=== PATIENT | female | born 1940 | race Caucasian/White ===

== ENCOUNTER 2017-06-21 19:27 | Inpatient (IN) | payer MEDICARE ==
[~2017-06-21] VITALS: Ht 167.6 cm; Wt 70.0 kg
[2017-06-21 19:35] VITALS: BP 175/72; PULSE 84; RESP 20; TEMP 98.2; O2SAT 97
[2017-06-21] MEDS ORDERED: TETANUS/DIPHTHERIA TOXOID ADULT 0.5 ML VIAL IM ONE (19:45)
--- NOTE | 2017-06-21 19:47 | PD ---
HPI Chief Complaint: Medical Clearance Time Seen by Provider: 19:44 Travel History International Travel<30 days: No Contact w/Intl Traveler<30days: No Traveled to known affect area: No History of Present Illness HPI This is a 76-year-old female with long-standing history of hydrocephalus. She presents via EMS for evaluation. The patient reports that 2 days ago she was getting out of bed and she fell. The circumstances regarding the fall are unclear but she denies any precipitating dizziness, lightheadedness, chest pain or shortness of breath, headache, blurred vision, weakness. She reports that she sustained an abrasion to her right forearm and denies any other injuries. Reportedly today her family felt that she needed to come here for evaluation. The patient reports that she was doing her laundry and her family felt that she was not moving as swiftly as usual and this was the deciding factor in her evaluation today. The patient reports that she feels well. She has had some myalgias throughout the week which she attributed to possible flu. She has some left-sided neck pain for the past few days as well and is uncertain if that was from a fall or not. She denies headache, blurred vision, chest pain or shortness of breath, cough, congestion, sore throat, abdominal pain, diarrhea , constipation. She has no other complaints at this time. FORMERLY [facility], [facility] Past Medical History ?: Not Social History Alcohol Use: No Tobacco Use: No Allergies-Medications (Allergen,Severity, Reaction): Coded Allergies: No Known Allergies (Unverified , 06/21/17) Review of Systems Except as stated in HPI: all other systems reviewed are Neg Physical Exam Narrative GENERAL: Well-developed well-nourished female in no acute distress answering questions appropriately SKIN: Warm and dry. Abrasion to the right forearm. HEAD: Atraumatic. Normocephalic. EYES: Pupils equal and round. No scleral icterus. No injection or drainage. ENT: No nasal bleeding or discharge. Mucous membranes pink and moist. NECK: Trachea midline. No JVD. CARDIOVASCULAR: Regular rate and rhythm. No murmur appreciated. RESPIRATORY: No accessory muscle use. Clear to auscultation. Breath sounds equal bilaterally. GASTROINTESTINAL: Abdomen soft, non-tender, nondistended. Hepatic and splenic margins not palpable. MUSCULOSKELETAL: No obvious deformities. The patient appears to be holding her neck tilted towards the left. She has pain with range of motion of the neck. No obvious deformities. No tenderness to palpation along the cervical thoracic or lumbar midline spine. NEUROLOGICAL: Awake and alert. No obvious cranial nerve deficits. Motor grossly within normal limits. Normal speech. PSYCHIATRIC: Appropriate mood and affect; insight and judgment normal. Data Data Last Documented VS Vital Signs Date Time Temp Pulse Resp B/P (MAP) Pulse Ox O2 Delivery O2 Flow Rate FiO2 06/21/17 19:35 98.2 84 20 175/72 (106) [address] Cerv Spine W/O Contrast (06/21/17 ) Tetanus/Diphtheria Tox Adult (Tetanus/Di (06/21/17 19:45) Ct Brain W/O Iv Contrast(Rout) (06/21/17 ) Influenzae A/B Antigen (06/21/17 19:44) Electrocardiogram (06/21/17 19:44) Complete Blood Count With Diff (06/21/17 19:44) Comprehensive Metabolic Panel (06/21/17 19:44) Creatine Kinase (Cpk) (06/21/17 19:44) Urinalysis - C+S If Indicated (06/21/17 19:44) Chest, Single Ap (06/21/17 19:44) Ecg Monitoring (06/21/17 19:44) Iv Access Insert/Monitor (06/21/17 19:44) Oximetry (06/21/17 19:44) Acetaminophen (Tylenol) (06/21/17 21:00) Sodium Chlor 0.9% 1000 Ml Inj (Ns 1000 M (06/21/17 21:23) CKMB (06/21/17 20:45) CKMB% (06/21/17 20:45) Sodium Chlor 0.9% 1000 Ml Inj (Ns 1000 M (06/21/17 21:43) Labs Laboratory Tests Test 06/21/17 19:55 06/21/17 20:45 06/21/17 21:30 White Blood Count 10.4 TH/MM3 Red Blood Count 4.60 MIL/MM3 Hemoglobin 14.0 GM/DL Hematocrit 41.5 % Mean Corpuscular Volume 90.1 FL Mean Corpuscular Hemoglobin 30.3 PG Mean Corpuscular Hemoglobin Concent 33.7 % Red Cell Distribution Width 13.1 % Platelet Count 271 TH/MM3 Mean Platelet Volume 9.9 FL Neutrophils (%) (Auto) 85.2 % Lymphocytes (%) (Auto) 4.4 % Monocytes (%) (Auto) 10.3 % Eosinophils (%) (Auto) 0.0 % Basophils (%) (Auto) 0.1 % Neutrophils # (Auto) 8.8 TH/MM3 Lymphocytes # (Auto) 0.5 TH/MM3 Monocytes # (Auto) 1.1 TH/MM3 Eosinophils # (Auto) 0.0 TH/MM3 Basophils # (Auto) 0.0 TH/MM3 CBC Comment DIFF FINAL Differential Comment Blood Urea Nitrogen 30 MG/DL Creatinine 0.87 MG/DL Random Glucose 119 MG/DL Total Protein 8.0 GM/DL Albumin 3.9 GM/DL Calcium Level 9.0 MG/DL Alkaline Phosphatase 23 U/L Aspartate Amino Transf (AST/SGOT) 154 U/L Alanine Aminotransferase (ALT/SGPT) 77 U/L Total Bilirubin 0.6 MG/DL Sodium Level 139 MEQ/L Potassium Level 3.4 MEQ/L Chloride Level 104 MEQ/L Carbon Dioxide Level 27.5 MEQ/L Anion Gap 8 MEQ/L Estimat Glomerular Filtration Rate 63 ML/MIN Total Creatine Kinase 5740 U/L Creatine Kinase MB 55.7 NG/ML Creatine Kinase MB % 1.0 % [facility] Medical Decision Making Medical Screen Exam Complete: Yes Emergency Medical Condition: Yes Medical Record Reviewed: Yes Interpretation(s) CT cervical spine CONCLUSION: 1. No evidence of acute fracture or traumatic listhesis. 2. Deformity left C5-6 facet joints which may be developmental or posttraumatic from previous injury. 3. Dextroscoliosis of the cervical spine CT brain reveals hydrocephalus Differential Diagnosis Influenza, myalgias, myositis, rhabdomyolysis, dehydration, electrolyte abnormality Narrative Course The patient was placed on ECG monitoring pulse oximetry. Twelve-lead EKG was obtained. Plan is for basic lab work, chest x-ray, CT of the brain and cervical spine. CT the brain reveals hydrocephalus consistent with her history. CBC is unremarkable. CT of the cervical spine reveals no acute abnormalities. CBC is unremarkable. The patient is positive for influenza B. Her symptoms started 1 week ago. The son has arrived and is concerned about her behavior over the past 2 days. He thinks that the patient was sitting on the toilet for over 24 hours and unable to get up. The patient's total CK is 5740, this could be secondary to influenza or immobilization. The patient will be given IV fluids and she will be admitted. Diagnosis Primary Impression: Influenza Additional Impressions: Generalized weakness Rhabdomyolysis Admitting Information Admitting Physician Requests: Admit Bogdan Crawford Jun 21, 2017 19:47
--- NOTE | 2017-06-21 20:16 | RADRPT ---
EXAM DATE/TIME: 06/21/2017 19:57 [facility] COMPARISON: No previous studies available for comparison. INDICATIONS : Flu-like symptoms for 2 days. MEDICAL HISTORY : Hypercholesterolemia. SURGICAL HISTORY : Unobtainable ENCOUNTER: Initial ACUITY: 2 days PAIN SCORE: 0/10 LOCATION: Bilateral chest FINDINGS: A single view of the chest demonstrates the lungs to be symmetrically aerated without evidence of mas s, infiltrate or effusion. The cardiomediastinal contours are unremarkable. Osseous structures are intact. CONCLUSION: No acute disease. Gilbert Aguilar MD on June 21, 2017 at 20:13 Board Certified Radiologist. This report was verified electronically.
[2017-06-21 20:23] LABS: AUTOMATED NEUTROPHIL # 8.8 TH/MM3 (1.8-7.7); BASOPHIL % 0.1 % (0.0-2.0); HEMATOCRIT 41.5 % (35.0-46.0); LYMPH % 4.4 % (9.0-44.0); LYMPHOCYTE # 0.5 TH/MM3 (1.0-4.8); MEAN CELL VOLUME 90.1 FL (80.0-100.0); MEAN CORPUSCULAR HEMOGLOBIN 30.3 PG (27.0-34.0); MEAN CORPUSCULAR HGB CONC 33.7 % (32.0-36.0); MEAN PLATELET VOLUME 9.9 FL (7.0-11.0); MONO % 10.3 % (0.0-8.0); MONOCYTE # 1.1 TH/MM3 (0-0.9); NEUT % 85.2 % (16.0-70.0); PLATELET COUNT 271 TH/MM3 (150-450); RED CELL DISTRIBUTION WIDTH 13.1 % (11.6-17.2); WHITE BLOOD COUNT 10.4 TH/MM3 (4.0-11.0)
--- NOTE | 2017-06-21 20:56 | RADRPT ---
EXAM DATE/TIME: 06/21/2017 20:14 [facility] COMPARISON: No previous studies available for comparison. INDICATIONS : Trauma, fall on . Altered mental status. RADIATION DOSE: 69.15 CTDIvol (mGy) MEDICAL HISTORY : None SURGICAL HISTORY : None. ENCOUNTER: Initial ACUITY: 1 day PAIN SCALE: 5/10 LOCATION: cranial TECHNIQUE: Multiple contiguous axial images were obtained of the head. Using automated exposure control and adj ustment of the mA and/or kV according to patient size, radiation dose was kept as low as reasonably a chievable to obtain optimal diagnostic quality images. DICOM format image data is available electro nically for review and comparison. FINDINGS: CEREBRUM: The ventricles are markedly enlarged. There no findings characteristic of an acute infarct, hemorrhag e, mass or edema. POSTERIOR FOSSA: The cerebellum and brainstem are intact. The 4th ventricle is moderately enlarged. The cerebellopon nisha angle is unremarkable. EXTRACRANIAL: The visualized portion of the orbits is intact. SKULL: The calvaria is intact. No evidence of skull fracture. CONCLUSION: 1. Ventriculomegaly characteristic of hydrocephalus. 2. No evidence of acute infarct, hemorrhage, mass or edema. Gilbert Aguilar MD on June 21, 2017 at 20:52 Board Certified Radiologist. This report was verified electronically.
[2017-06-21] MEDS ORDERED: ACETAMINOPHEN 325 MG TAB PO ONE (21:00)
--- NOTE | 2017-06-21 21:01 | RADRPT ---
EXAM DATE/TIME: 06/21/2017 20:16 [facility] COMPARISON: No previous studies available for comparison. INDICATIONS : Trauma, fall on . RADIATION DOSE: 30.12 CTDIvol (mGy) MEDICAL HISTORY : None SURGICAL HISTORY : None. ENCOUNTER: Initial ACUITY: 1 day PAIN SCALE: 4/10 LOCATION: neck TECHNIQUE: Volumetric scanning of the cervical spine was performed. Multiplanar reconstructions in the sagittal, coronal and oblique axial planes were performed. Using automated exposure control and adjustment o f the mA and/or kV according to patient size, radiation dose was kept as low as reasonably achievable to obtain optimal diagnostic quality images. DICOM format image data is available electronically f or review and comparison. FINDINGS: A dextro scoliotic curvature is noted of the cervical spine. Cranial cervical and cervical vertebral body alignment are intact without evidence of traumatic listh esis. Vertebral bodies are intact without evidence of compression deformity. There is deformity of the left T5-T6 facet joint which does not appear acute. The facet joints are ot herwise unremarkable without evidence of fracture or subluxation. There are no soft tissue abnormalities. CONCLUSION: 1. No evidence of acute fracture or traumatic listhesis. 2. Deformity left C5-6 facet joints which may be developmental or posttraumatic from previous injury. 3. Dextroscoliosis of the cervical spine Gilbert Aguilar MD on June 21, 2017 at 20:54 Board Certified Radiologist. This report was verified electronically.
[2017-06-21 21:21] LABS: ALBUMIN 3.9 GM/DL (3.4-5.0); AST (GOT) 154 U/L (15-37); BICARBONATE 27.5 MEQ/L (21.0-32.0); BLOOD UREA NITROGEN 30 MG/DL (7-18); CHLORIDE 104 MEQ/L (98-107); CREATININE 0.87 MG/DL (0.50-1.00); GLOMERULAR FILTRATION RATE 63 ML/MIN (>89); GLUCOSE,RANDOM 119 MG/DL (74-106); SODIUM (NA) 139 MEQ/L (136-145)
[2017-06-21 21:22] LABS: ALT (GPT) 77 U/L (10-53)
[2017-06-21] MEDS ORDERED: SODIUM CHLOR 0.9% 1000 ML INJ 1,000 ML IV SCH ×2 (21:23→21:43)
[2017-06-21 21:36] LABS: ALKALINE PHOSPHATASE 23 U/L (45-117); TOTAL BILIRUBIN ADULT 0.6 MG/DL (0.2-1.0)
[2017-06-21] MEDS ORDERED: LACTULOSE SYRUP 20 GM/30 ML CUP PO PRN (22:15)
[2017-06-21] MEDS ORDERED: BISACODYL 10 MG SUPP RECTAL PRN (22:15)
[2017-06-21] MEDS ORDERED: ACETAMINOPHEN 325 MG TAB PO PRN (22:15)
[2017-06-21] MEDS ORDERED: ACETAMINOPHEN/HYDROcodone 325 MG/5 MG TAB PO PRN (22:15)
[2017-06-21] MEDS ORDERED: POTASSIUM CHLORIDE 20 MEQ CONTROLLED RELEASE TAB PO ONE (22:15)
[2017-06-21] MEDS ORDERED: ONDANSETRON HCL 4 MG/2 ML VIAL IVP PRN (22:15)
[2017-06-21] MEDS ORDERED: MAGNESIUM HYDROXIDE SUSP 30 ML CUP PO PRN (22:15)
[2017-06-21] MEDS ORDERED: SODIUM CHLORIDE 0.9% FLUSH 10 ML FLUSH IV FLUSH PRN (22:15)
[2017-06-21] MEDS ORDERED: SENNOSIDES 8.6 MG TAB PO PRN (22:15)
[2017-06-21] MEDS ORDERED: ACETAMINOPHEN/HYDROcodone 325 MG/10 MG TAB PO PRN (22:15)
[2017-06-21 23:43] VITALS: BP 165/70; PULSE 88; RESP 24; O2SAT 95
[2017-06-22] VITALS (11 sets, daily range): BP systolic 114–140; BP diastolic 56–78; PULSE 75–92; RESP 16–22; TEMP 96–98.8; O2SAT 90–95
--- NOTE | 2017-06-22 00:27 | HHI.HP ---
[facility] Service [facility] Primary Care Physician Unknown Admission Diagnosis rhabdomyolysis, influenza Diagnoses: (1) Encephalopathy Diagnosis: Principal (2) Hypokalemia Diagnosis: Principal (3) Dehydration Diagnosis: Principal (4) Rhabdomyolysis Diagnosis: Principal (5) Influenza Diagnosis: Principal (6) Generalized weakness Diagnosis: Principal Travel History International Travel<30 Days: No Contact w/Intl Traveler <30 Da: No Traveled to Known Affected Are: No History of Present Illness This is a 76-year-old female with a PMH of Hydrocephalus and Hyperlipidemia was brought to the ER by EMS secondary to fall. Pt w/ generalized weakness, s/p fall 2 days ago, now w/ progressive confusion noted by family. Pt poor historian, unable to provide much history, but states she feels well at this time. Does note muscle aches and fatigue for approx 1wk. No fever, chills or sick contacts. On arrival, BP 135/72, HR 84, O2 sat 97% on RA, Afebrile. CBC unremarkable. K+ 3.4. GFR 63. LFTs elevated. CPK 5740. UA pending. CT Head with ventriculomegaly characteristic of hydrocephalus, no acute findings. CT C-spine with no acute fracture or trauma. CXR with no acute findings. Flu B + Review of Systems Except as stated in HPI: all other systems reviewed are Neg ROS: 14 point review of systems otherwise negative. Past Family Social History Past Medical History PMH: Hydrocephalus and Hyperlipidemia Past Surgical History PAST SURGICAL HISTORY: None Allergies: Coded Allergies: No Known Allergies (Unverified , 06/21/17) Family History PAST FAMILY HISTORY: Reviewed. No h/o DM or CAD Social History PAST SOCIAL HISTORY: Negative for alcohol, tobacco or drugs. Physical Exam Vital Signs Vital Signs Date Time Temp Pulse Resp B/P (MAP) Pulse Ox O2 Delivery O2 Flow Rate FiO2 06/21/17 23:43 88 24 165/70 (101) 95 Room Air 06/21/17 19:35 98.2 84 20 175/72 (106) 97 Physical Exam PE: GENERAL: Elderly female in no acute distress. HEENT: PERRLA, EOMI. No scleral icterus or conjunctival pallor. No lid lag or facial droop. CARDIOVASCULAR: Regular rate and rhythm. No obvious murmurs to auscultation. No chest tenderness to palpation. RESPIRATORY: No obvious rhonchi or wheezing. Clear to auscultation. Breath sounds equal bilaterally. GASTROINTESTINAL: Abdomen soft, non-tender, nondistended. BS normal. MUSCULOSKELETAL: Extremities without clubbing, cyanosis, or edema. No obvious deformities. NEUROLOGICAL: Awake, alert. No focal neurologic deficits. Moving both upper and lower extremities spontaneously. Laboratory Laboratory Tests Test 06/21/17 19:55 06/21/17 20:45 White Blood Count 10.4 Red Blood Count 4.60 Hemoglobin 14.0 Hematocrit 41.5 Mean Corpuscular Volume 90.1 Mean Corpuscular Hemoglobin 30.3 Mean Corpuscular Hemoglobin Concent 33.7 Red Cell Distribution Width 13.1 Platelet Count 271 Mean Platelet Volume 9.9 Neutrophils (%) (Auto) 85.2 Lymphocytes (%) (Auto) 4.4 Monocytes (%) (Auto) 10.3 Eosinophils (%) (Auto) 0.0 Basophils (%) (Auto) 0.1 Neutrophils # (Auto) 8.8 Lymphocytes # (Auto) 0.5 Monocytes # (Auto) 1.1 Eosinophils # (Auto) 0.0 Basophils # (Auto) 0.0 CBC Comment DIFF FINAL Differential Comment Blood Urea Nitrogen 30 Creatinine 0.87 Random Glucose 119 Total Protein 8.0 Albumin 3.9 Calcium Level 9.0 Alkaline Phosphatase 23 Aspartate Amino Transf (AST/SGOT) 154 Alanine Aminotransferase (ALT/SGPT) 77 Total Bilirubin 0.6 Sodium Level 139 Potassium Level 3.4 Chloride Level 104 Carbon Dioxide Level 27.5 Anion Gap 8 Estimat Glomerular Filtration Rate 63 Total Creatine Kinase 5740 Creatine Kinase MB 55.7 Creatine Kinase MB % 1.0 Date/Time Source Procedure Growth Status 06/21/17 19:57 Nasal Aspirate Influenza Types A,B Antigen (ITALO) - Final Positive For Flu B Antigen Complete 06/21/17 20:11 Urine Catheterized Urine Urine Culture Pending Received Result Diagram: 06/21/17195406/21/172044 Caprini VTE Risk Assessment Caprini VTE Risk Assessment: No/Low Risk (score <= 1) Caprini Risk Assessment Model Point Value = 1 Point Value = 2 Point Value = 3 Point Value = 5 Age 41-60 Minor surgery BMI > 25 kg/m2 Swollen legs Varicose veins or History of unexplained or recurrent spontaneous Oral contraceptives or hormone replacement Sepsis (< 1 month) Serious lung disease, including pneumonia (< 1 month) Abnormal pulmonary function Acute myocardial infarction Congestive heart failure (< 1 month) History of inflammatory bowel disease Medical patient at bed rest Age 61-74 Arthroscopic surgery Major open surgery (> 45 min) Laparoscopic surgery (> 45 min) Malignancy Confined to bed (> 72 hours) Immobilizing plaster cast Central venous access Age >= 75 History of VTE Family history of VTE Factor V Leiden Prothrombin [id number] Lupus anticoagulant Anticardiolipin antibodies Elevated serum homocysteine Heparin-induced thrombocytopenia Other congenital or acquired thrombophilia Stroke (< 1 month) Elective arthroplasty Hip, pelvis, or leg fracture Acute spinal cord injury (< 1 month) Prophylaxis Regimen Total Risk Factor Score Risk Level Prophylaxis Regimen 0-1 Low Early ambulation 2 Moderate Order ONE of the following: *Sequential Compression Device (SCD) *Heparin 5000 units SQ BID 3-4 Higher Order ONE of the following medications: *Heparin 5000 units SQ TID *Enoxaparin/Lovenox 40 mg SQ daily (WT < 150 kg, CrCl > 30 mL/min) *Enoxaparin/Lovenox 30 mg SQ daily (WT < 150 kg, CrCl > 10-29 mL/min) *Enoxaparin/Lovenox 30 mg SQ BID (WT < 150 kg, CrCl > 30 mL/min) AND/OR *Sequential Compression Device (SCD) 5 or more Highest Order ONE of the following medications: *Heparin 5000 units SQ TID (Preferred with Epidurals) *Enoxaparin/Lovenox 40 mg SQ daily (WT < 150 kg, CrCl > 30 mL/min) *Enoxaparin/Lovenox 30 mg SQ daily (WT < 150 kg, CrCl > 10-29 mL/min) *Enoxaparin/Lovenox 30 mg SQ BID (WT < 150 kg, CrCl > 30 mL/min) AND *Sequential Compression Device (SCD) Assessment and Plan Problem List: (1) Encephalopathy ICD Code: G93.40 - Encephalopathy, unspecified (2) Hypokalemia ICD Code: E87.6 - Hypokalemia (3) Dehydration ICD Code: E86.0 - Dehydration (4) Influenza ICD Code: J11.1 - Influenza due to unidentified influenza virus with other respiratory manifestations Status: Acute (5) Rhabdomyolysis ICD Code: M62.82 - Rhabdomyolysis Status: Acute (6) Generalized weakness ICD Code: R53.1 - Weakness Status: Acute Assessment and Plan A/P: 1. Encephalopathy: s/p fall, no head trauma reported, now w/ increased confusion per family, likely secondary to underlying infection as Flu +, suspect UTI as well, pending U/a. CT Head w/ ventriculomegaly, no acute findings, CT C-Spine negative for fracture, images reviewed by me. PT for eval/ tx, Case Management as needed. 2. Rhabdomyolysis: CPK 5740, likely secondary to fall in combination w/ viral myositis. IVF for hydration, check serial CPK for trend. U/a pending, will follow. 3. Dehydration: GFR 63, BUN 30, IVF for hydration, repeat labs in am. 4. Influenza B+: c/o generalized weakness, body aches, flu-like symptoms. IVF for hydration, symptom relief as needed. 5. Hypokalemia: K+ 3.4, will replace, recheck labs in am. 6. Generalized Weakness: secondary to acute viral syndrome/acute illness and dehydration. PT for eval/tx. 7. DVT Prophylaxis: SCD/Teds. 8. Social work for d/c planning as needed. 9. Labs/imaging/records reviewed by me, case discussed w/ ER physician at length. Physician Certification 2 Midnight Certification Type: Admission for Inpatient Services Order for Inpatient Services The services are ordered in accordance with Medicare regulations or non- Medicare payer requirements, as applicable. In the case of services not specified as inpatient-only, they are appropriately provided as inpatient services in accordance with the 2-midnight benchmark. Estimated LOS (days): 2 days is the estimated time the patient will need to remain in the hospital, assuming treatment plan goals are met and no additional complications. Post-Hospital Plan: Not yet determined Niru Eng MD Jun 22, 2017 00:27
[2017-06-22] MEDS: SODIUM CHLOR 0.9% 1000 ML INJ 1,000 ML IV SCH ×3 (00:48→18:31)
[2017-06-22 05:17] LABS: AUTOMATED NEUTROPHIL # 4.1 TH/MM3 (1.8-7.7); BASOPHIL % 0.4 % (0.0-2.0); HEMOGLOBIN 11.8 GM/DL (11.6-15.3); LYMPH % 19.9 % (9.0-44.0); LYMPHOCYTE # 1.2 TH/MM3 (1.0-4.8); MEAN CORPUSCULAR HEMOGLOBIN 30.2 PG (27.0-34.0); MEAN CORPUSCULAR HGB CONC 33.6 % (32.0-36.0); MEAN PLATELET VOLUME 9.4 FL (7.0-11.0); MONO % 12.3 % (0.0-8.0); MONOCYTE # 0.7 TH/MM3 (0-0.9); NEUT % 67.4 % (16.0-70.0); PLATELET COUNT 209 TH/MM3 (150-450); RED BLOOD COUNT 3.89 MIL/MM3 (4.00-5.30); RED CELL DISTRIBUTION WIDTH 13.1 % (11.6-17.2); WHITE BLOOD COUNT 6.1 TH/MM3 (4.0-11.0)
[2017-06-22 05:53] LABS: ALBUMIN 2.7 GM/DL (3.4-5.0); BICARBONATE 25.7 MEQ/L (21.0-32.0); CALCIUM 7.4 MG/DL (8.5-10.1); CREATININE 0.62 MG/DL (0.50-1.00); TOTAL BILIRUBIN ADULT 0.4 MG/DL (0.2-1.0)
[2017-06-22] MEDS ORDERED: POTASSIUM CHLORIDE 10 MEQ CONTROLLED RELEASE TAB PO ONE ×2 (06:45→12:30)
[2017-06-22] MEDS: SODIUM CHLORIDE 0.9% FLUSH 10 ML FLUSH IV FLUSH SCH ×2 (07:40→21:00)
[2017-06-22] MEDS: DOCUSATE SODIUM 50 MG/SENNA 8.6 MG TAB PO SCH ×2 (07:40→21:00)
[2017-06-22] MEDS ORDERED: CALCIUM GLUCONATE INJ 1 GM in SODIUM CHLORIDE 0.9% INJ 100 ML IV ONE (11:00)
--- NOTE | 2017-06-22 12:30 | HHI.PR ---
Subjective Remarks Follow-up on patient with encephalopathy. Patient seen and examined. Patient states she feels much better this morning. She denies any complaints except for cough. She denies any fever or chills. Denies any shortness of breath or chest pain. Denies any nausea, vomiting or abdominal pain. States she is urinating well. Patient denies any difficulties with ambulation prior to admission. She denies any increased urination prior to admission. Patient follows with Dr. Carney of neurology as outpatient last seen in Apr/May last year. Objective Vitals Vital Signs Date Time Temp Pulse Resp B/P (MAP) Pulse Ox O2 Delivery O2 Flow Rate FiO2 06/22/17 09:00 98.4 84 16 132/60 (84) 93 06/22/17 08:10 84 06/22/17 04:17 96.4 84 18 114/56 (75) 95 06/22/17 02:14 78 06/22/17 00:46 06/22/17 00:42 96.0 83 16 135/61 (85) 95 06/22/17 00:00 88 22 127/62 (83) 95 Room Air 06/21/17 23:43 88 24 165/70 (101) 95 Room Air 06/21/17 19:35 98.2 84 20 175/72 (106) 97 I/O 06/21/17 06/21/17 06/21/17 06/22/17 06/22/17 06/22/17 07:00 15:00 23:00 07:00 15:00 23:00 Intake Total 2000 ml Balance 2000 ml Intake IV Total 2000 ml # Voids 3 Result Diagram: 06/22/17 0417 06/22/17 0417 Imaging Last Impressions Chest X-Ray 06/21/17 194 Signed Impressions: Service Date/Time: Wednesday, June 21, 2017 19:57 - CONCLUSION: No acute disease. Gilbert Aguilar MD Head CT 06/21/17 0000 Signed Impressions: Service Date/Time: Wednesday, June 21, 2017 20:14 - CONCLUSION: 1. Ventriculomegaly characteristic of hydrocephalus. 2. No evidence of acute infarct, hemorrhage, mass or edema. Gilbert Aguilar MD Cervical Spine CT 06/21/17 0000 Signed Impressions: Service Date/Time: Wednesday, June 21, 2017 20:16 - CONCLUSION: 1. No evidence of acute fracture or traumatic listhesis. 2. Deformity left C5-6 facet joints which may be developmental or posttraumatic from previous injury. 3. Dextroscoliosis of the cervical spine Gilbert Aguilar MD Objective Remarks GENERAL: Well-nourished, well-developed elderly female patient in NAD. Awake and alert. Oriented 3. SKIN: Warm and dry. No rash. HEAD: Normocephalic. Atraumatic. EYES: EOMI. No scleral icterus. No injection or drainage. ENT: No nasal bleeding or discharge. Mucous membranes pink and moist. NECK: Supple. Trachea midline. CARDIOVASCULAR: Regular rate and rhythm. S1, S2 noted. No murmur appreciated. RESPIRATORY: Nonlabored. Clear to auscultation. Fair air entry. GASTROINTESTINAL: Abdomen soft, non-tender, nondistended. Normoactive bowel sounds x4. MUSCULOSKELETAL: No obvious deformities. Extremities without clubbing, cyanosis , or edema. NEUROLOGICAL: Awake and alert. No obvious cranial nerve deficits. Motor grossly within normal limits. 4+/5 muscle strength in bilateral upper and lower extremities. Nonfocal. Normal speech. PSYCHIATRIC: Appropriate mood and affect; insight and judgment normal. Medications and IVs Current Medications Medications (Trade) Dose Ordered Sig/Carol Route Start Time Stop Time Status Last Admin Sodium Chloride 1,000 ml @ 100 mls/hr Q10H IV 06/21/17 22:12 06/22/17 07:40 (NS Flush) 2 ml UNSCH PRN IV FLUSH 06/21/17 22:15 (NS Flush) 2 ml BID IV FLUSH 06/22/17 09:00 (Zofran Inj) 4 mg Q6H PRN IVP 06/21/17 22:15 (Tylenol) 650 mg Q6H PRN PO 06/21/17 22:15 ([place] 5-325 Mg) 1 tab Q4H PRN PO 06/21/17 22:15 ([place] 10-325 Mg) 1 tab Q4H PRN PO 06/21/17 22:15 ([place]-Colace) 1 tab BID PO 06/22/17 09:00 06/22/17 07:40 (Milk Of Magnesia Liq) 30 ml Q12H PRN PO 06/21/17 22:15 (Senokot) 17.2 mg Q12H PRN PO 06/21/17 22:15 (Dulcolax Supp) 10 mg DAILY PRN RECTAL 06/21/17 22:15 (Lactulose Liq) 30 ml DAILY PRN PO 06/21/17 22:15 A/P Problem List: (1) Encephalopathy ICD Code: G93.40 - Encephalopathy, unspecified (2) Hypokalemia ICD Code: E87.6 - Hypokalemia (3) Dehydration ICD Code: E86.0 - Dehydration (4) Influenza ICD Code: J11.1 - Influenza due to unidentified influenza virus with other respiratory manifestations Status: Acute (5) Rhabdomyolysis ICD Code: M62.82 - Rhabdomyolysis Status: Acute (6) Generalized weakness ICD Code: R53.1 - Weakness Status: Acute Assessment and Plan 1. Encephalopathy: s/p fall, no head trauma reported, now w/ increased confusion per family, likely secondary to underlying infection as Flu +, suspect UTI as well, pending U/a. CT Head w/ ventriculomegaly, no acute findings, CT C-Spine negative for fracture, images reviewed by me. PT for eval/ tx, Case Management as needed. 2. Rhabdomyolysis: CPK 5740, likely secondary to fall in combination w/ viral myositis. IVF for hydration, check serial CPK for trend, 5729 this am. Monitor kidney function closely. 3. Dehydration: GFR 63, BUN 30, IVF for hydration, improving. Monitor. 4. Influenza B+: c/o generalized weakness, body aches, flu-like symptoms. IVF for hydration, symptom relief as needed. 5. Transaminitis: Secondary to above. Monitor LFT trend. Repeat labs in a.m. 6. Hypokalemia: Mag level 1.9. By mouth repletion ordered. A last monitor response. 7. Hypocalcemia: IV repletion. AM labs to monitor response 8. Generalized Weakness: secondary to acute viral syndrome/acute illness and dehydration. PT for eval/tx. 9. DVT Prophylaxis: Lovenox sq Attending Statement patient was admitted after a fall with generalized weakness. was found to have rhabdomyolysis- positive for influenza B. continue with IV fluid- monitor renal function and CPK level. PT consulted. rest of assessment and plan as noted above. Lisandra Rosenberg Jun 22, 2017 12:29 Justin Whyte MD Jun 22, 2017 13:37
--- NOTE | 2017-06-22 12:52 | EKG ---
Date Performed: 06/21/2017 Time Performed: 20:38:08 PTAGE: 76 years EKG: Sinus rhythm NORMAL ECG NO PREVIOUS TRACING DOCTOR: Hans Domínguez Interpretating Date/Time 06/22/2017 12:52:00
[2017-06-22] MEDS ORDERED: SIMV40TA PO (14:52)
[2017-06-22] MEDS: ENOXAPARIN SODIUM 40 MG/0.4 ML SYRINGE SQ SCH (14:53)
[2017-06-23] VITALS (8 sets, daily range): BP systolic 130–172; BP diastolic 59–83; PULSE 75–94; RESP 16–18; TEMP 97.8–98.9; O2SAT 92–99
[2017-06-23 08:04] LABS: ALBUMIN 2.4 GM/DL (3.4-5.0); BICARBONATE 24.4 MEQ/L (21.0-32.0); CALCIUM 7.4 MG/DL (8.5-10.1); CALCIUM-PROTEIN CORRECTED 8.2 MG/DL (8.5-10.1); CREATININE 0.47 MG/DL (0.50-1.00); TOTAL BILIRUBIN ADULT 0.4 MG/DL (0.2-1.0); TOTAL PROTEIN 5.6 GM/DL (6.4-8.2)
[2017-06-23] MEDS: DOCUSATE SODIUM 50 MG/SENNA 8.6 MG TAB PO SCH ×2 (09:00→20:58)
[2017-06-23] MEDS: SODIUM CHLORIDE 0.9% FLUSH 10 ML FLUSH IV FLUSH SCH ×2 (09:00→20:58)
--- NOTE | 2017-06-23 09:10 | HHI.PR ---
Subjective Remarks in no acute distress. afebrile. denies pain. still with some generalized weakness but is a little better today. Objective Vitals Vital Signs Date Time Temp Pulse Resp B/P (MAP) Pulse Ox O2 Delivery O2 Flow Rate FiO2 06/23/17 08:43 97.8 80 16 172/72 (105) 96 06/23/17 04:00 98.0 80 17 139/75 (96) 96 06/23/17 00:00 98.1 82 16 141/76 (97) 99 06/23/17 00:00 75 06/22/17 20:22 98.7 92 18 131/78 (95) 95 06/22/17 20:00 92 06/22/17 15:49 75 06/22/17 13:08 98.8 83 17 140/65 (90) 90 06/22/17 12:00 84 I/O 06/22/17 06/22/17 06/22/17 06/23/17 06/23/17 06/23/17 07:00 15:00 23:00 07:00 15:00 23:00 Intake Total 2000 ml 110 ml 3075 ml Balance 2000 ml 110 ml 3075 ml Intake Oral 230 ml IV Total 2000 ml 110 ml 2845 ml # Voids 3 1 Result Diagram: 06/22/17 0417 06/23/17 0420 Imaging Last Impressions Chest X-Ray 06/21/17 1944 Signed Impressions: Service Date/Time: Wednesday, June 21, 2017 19:57 - CONCLUSION: No acute disease. Gilbert Aguilar MD Head CT 06/21/17 0000 Signed Impressions: Service Date/Time: Wednesday, June 21, 2017 20:14 - CONCLUSION: 1. Ventriculomegaly characteristic of hydrocephalus. 2. No evidence of acute infarct, hemorrhage, mass or edema. Gilbert Aguilar MD Cervical Spine CT 06/21/17 0000 Signed Impressions: Service Date/Time: Wednesday, June 21, 2017 20:16 - CONCLUSION: 1. No evidence of acute fracture or traumatic listhesis. 2. Deformity left C5-6 facet joints which may be developmental or posttraumatic from previous injury. 3. Dextroscoliosis of the cervical spine Gilbert Aguilar MD Objective Remarks GENERAL: This is a well-nourished, well-developed patient, in no apparent distress. CARDIOVASCULAR: Regular rate and regular rhythm without murmurs, gallops, or rubs. RESPIRATORY: Clear to auscultation. Breath sounds equal bilaterally. No wheezes , rales, or rhonchi. GASTROINTESTINAL: Abdomen soft, non-tender, nondistended. Normal, active bowel sounds MUSCULOSKELETAL: Extremities without clubbing, cyanosis, or edema. NEURO: Alert & Oriented x4 to person, place, time, situation. Moves all ext x4 Medications and IVs Inpatient Medications Acetaminophen (Tylenol) 650 mg Q6H PRN PO FEVER/PAIN SCALE 1 TO 2; Start at 22:15 Acetaminophen/ Hydrocodone Bitart ([place] 5-325 Mg) 1 tab Q4H PRN PO PAIN SCALE 3 TO 5; Start 06/21/17 at 22:15 Acetaminophen/ Hydrocodone Bitart ([place] 10-325 Mg) 1 tab Q4H PRN PO PAIN SCALE 6 TO 10; Start 06/21/17 at 22:15 Bisacodyl (Dulcolax Supp) 10 mg DAILY PRN RECTAL SEVERE CONSITIPATION; Start at 22:15 Calcium Gluconate 1 gm/Sodium Chloride 110 ml @ 110 mls/hr ONCE ONCE IV Last administered on 06/22/17at 12:41; Start 06/22/17 at 11:00; Stop 06/22/17 at 11:59; Status DC Enoxaparin Sodium (Lovenox Inj) 40 mg Q24H SQ Last administered on 06/22/17at 14: 53; Start 06/22/17 at 14:00 Lactulose (Lactulose Liq) 30 ml DAILY PRN PO SEVERE CONSITIPATION; Start at 22:15 Magnesium Hydroxide (Milk Of Magnesia Liq) 30 ml Q12H PRN PO Mild constipation ; Start 06/21/17 at 22:15 Ondansetron HCl (Zofran Inj) 4 mg Q6H PRN IVP NAUSEA OR VOMITING; Start at 22:15 Potassium Chloride (KCl) 30 meq ONCE ONCE PO Last administered on 06/22/17at 12: 39; Start 06/22/17 at 12:30; Stop 06/22/17 at 12:31; Status DC Senna/Docusate Sodium ([place]-Colace) 1 tab BID PO Last administered on 06/22/17at 07:40; Start 06/22/17 at 09:00 Sennosides (Senokot) 17.2 mg Q12H PRN PO Moderate constipation; Start 06/21/17 at 22:15 Sodium Chloride (NS Flush) 2 ml BID IV FLUSH ; Start 06/22/17 at 09:00 Tetanus/ Diphtheria Toxoids (Tetanus/ Diphtheria Tox Adult) 0.5 ml ONCE ONCE IM Last administered on 06/21/17at 21:47; Start 06/21/17 at 19:45; Stop 06/21/17 at 19:46; Status DC A/P Problem List: (1) Encephalopathy ICD Code: G93.40 - Encephalopathy, unspecified (2) Hypokalemia ICD Code: E87.6 - Hypokalemia (3) Dehydration ICD Code: E86.0 - Dehydration (4) Influenza ICD Code: J11.1 - Influenza due to unidentified influenza virus with other respiratory manifestations Status: Acute (5) Rhabdomyolysis ICD Code: M62.82 - Rhabdomyolysis Status: Acute (6) Generalized weakness ICD Code: R53.1 - Weakness Status: Acute Assessment and Plan 1. Encephalopathy: s/p fall, no head trauma reported, now w/ increased confusion per family, likely secondary to underlying infection as Flu + and UTI as well. CT Head w/ ventriculomegaly, no acute findings, CT C-Spine negative for fracture. PT for eval/tx. start on Rocephin- will follow the . 2. Rhabdomyolysis: improving. IVF for hydration, check serial CPK for trend. Monitor kidney function closely. 3. Dehydration: GFR 63, BUN 30, IVF for hydration, improving. Monitor. 4. Influenza B+: c/o generalized weakness, body aches, flu-like symptoms. IVF for hydration, symptom relief as needed. 5. Transaminitis: Secondary to above. Monitor LFT trend. Repeat labs in a.m. 6. Hypokalemia: replaced. 7. Generalized Weakness: secondary to acute viral syndrome/acute illness and dehydration. PT for eval/tx. 8. DVT Prophylaxis: Lovenox sq Justin Whyte MD Jun 23, 2017 09:10
[2017-06-23] MEDS: SODIUM CHLOR 0.9% 1000 ML INJ 1,000 ML IV SCH ×2 (10:37→14:12)
[2017-06-23] MEDS: cefTRIAXone INJ 1,000 MG in SODIUM CHLORIDE 0.9% INJ 100 ML IV SCH (10:38)
[2017-06-23] MEDS: ENOXAPARIN SODIUM 40 MG/0.4 ML SYRINGE SQ SCH (14:23)
[2017-06-23] MEDS ORDERED: CALCIUM CARBONATE 500 MG CHEWABLE TAB CHEW ONE (15:00)
[2017-06-23] MEDS: CALCIUM CARBONATE 500 MG CHEWABLE TAB CHEW SCH (20:58)
[2017-06-24] MEDS: SODIUM CHLOR 0.9% 1000 ML INJ 1,000 ML IV SCH ×2 (01:17→11:21)
[2017-06-24 02:41] VITALS: BP 155/67; PULSE 78; RESP 17; TEMP 99; O2SAT 92
[2017-06-24 07:51] LABS: ALBUMIN 2.3 GM/DL (3.4-5.0); ALT (GPT) 125 U/L (10-53); AST (GOT) 129 U/L (15-37); BICARBONATE 28.9 MEQ/L (21.0-32.0); BLOOD UREA NITROGEN 8 MG/DL (7-18); CALCIUM 7.9 MG/DL (8.5-10.1); CHLORIDE 105 MEQ/L (98-107); GLOMERULAR FILTRATION RATE 119 ML/MIN (>89); GLUCOSE,RANDOM 97 MG/DL (74-106); SODIUM (NA) 139 MEQ/L (136-145)
[2017-06-24 08:05] LABS: ALKALINE PHOSPHATASE 18 U/L (45-117); TOTAL BILIRUBIN ADULT 0.6 MG/DL (0.2-1.0); TOTAL PROTEIN 5.8 GM/DL (6.4-8.2)
[2017-06-24 09:10] VITALS: BP 146/70; PULSE 74; RESP 16; TEMP 98.4; O2SAT 96
[2017-06-24] MEDS: CALCIUM CARBONATE 500 MG CHEWABLE TAB CHEW SCH ×2 (10:36→20:10)
[2017-06-24] MEDS: cefTRIAXone INJ 1,000 MG in SODIUM CHLORIDE 0.9% INJ 100 ML IV SCH (10:40)
[2017-06-24] MEDS: DOCUSATE SODIUM 50 MG/SENNA 8.6 MG TAB PO SCH ×2 (10:48→20:11)
[2017-06-24] MEDS: SODIUM CHLORIDE 0.9% FLUSH 10 ML FLUSH IV FLUSH SCH ×2 (10:48→20:11)
--- NOTE | 2017-06-24 11:48 | HHI.PR ---
Subjective Remarks in no acute distress. resting comfortably. denies pain. no sob or cough. afebrile. Objective Vitals Vital Signs Date Time Temp Pulse Resp B/P (MAP) Pulse Ox O2 Delivery O2 Flow Rate FiO2 06/24/17 09:10 98.4 74 16 146/70 (95) 96 06/24/17 02:41 99.0 78 17 155/67 (96) 92 06/23/17 23:01 98.9 81 17 135/83 (100) 93 06/23/17 20:08 98.1 94 17 164/72 (102) 94 06/23/17 14:48 98.9 83 18 130/59 (82) 93 06/23/17 13:17 98.4 76 18 144/65 (91) 93 I/O 06/23/17 06/23/17 06/23/17 06/24/17 06/24/17 06/24/17 06:59 14:59 22:59 06:59 14:59 22:59 Intake Total 1000 ml 200 ml Balance 1000 ml 200 ml Intake Oral 200 ml IV Total 1000 ml # Voids 3 # Bowel Movements 1 Result Diagram: 06/22/17 0417 06/24/17 0659 Imaging Last Impressions Chest X-Ray 06/21/17 1944 Signed Impressions: Service Date/Time: Wednesday, June 21, 2017 19:57 - CONCLUSION: No acute disease. Gilbert Aguilar MD Head CT 06/21/17 0000 Signed Impressions: Service Date/Time: Wednesday, June 21, 2017 20:14 - CONCLUSION: 1. Ventriculomegaly characteristic of hydrocephalus. 2. No evidence of acute infarct, hemorrhage, mass or edema. Gilbert Aguilar MD Cervical Spine CT 06/21/17 0000 Signed Impressions: Service Date/Time: Wednesday, June 21, 2017 20:16 - CONCLUSION: 1. No evidence of acute fracture or traumatic listhesis. 2. Deformity left C5-6 facet joints which may be developmental or posttraumatic from previous injury. 3. Dextroscoliosis of the cervical spine Gilbert Aguilar MD Objective Remarks GENERAL: This is a well-nourished, well-developed patient, in no apparent distress. CARDIOVASCULAR: Regular rate and regular rhythm without murmurs, gallops, or rubs. RESPIRATORY: Clear to auscultation. Breath sounds equal bilaterally. No wheezes , rales, or rhonchi. GASTROINTESTINAL: Abdomen soft, non-tender, nondistended. Normal, active bowel sounds MUSCULOSKELETAL: Extremities without clubbing, cyanosis, or edema. NEURO: Alert & Oriented x4 to person, place, time, situation. Moves all ext x4 Medications and IVs Inpatient Medications Acetaminophen (Tylenol) 650 mg Q6H PRN PO FEVER/PAIN SCALE 1 TO 2; Start at 22:15 Acetaminophen/ Hydrocodone Bitart ([place] 5-325 Mg) 1 tab Q4H PRN PO PAIN SCALE 3 TO 5; Start 06/21/17 at 22:15 Acetaminophen/ Hydrocodone Bitart ([place] 10-325 Mg) 1 tab Q4H PRN PO PAIN SCALE 6 TO 10; Start 06/21/17 at 22:15 Bisacodyl (Dulcolax Supp) 10 mg DAILY PRN RECTAL SEVERE CONSITIPATION; Start at 22:15 Calcium Carbonate (Tums Chew) 500 mg ONCE ONCE CHEW Last administered on at 16:48; Start 06/23/17 at 15:00; Stop 06/23/17 at 15:01; Status DC Calcium Gluconate 1 gm/Sodium Chloride 110 ml @ 110 mls/hr ONCE ONCE IV Last administered on 06/22/17at 12:41; Start 06/22/17 at 11:00; Stop 06/22/17 at 11:59; Status DC Ceftriaxone Sodium 1000 mg/ Sodium Chloride 100 ml @ 200 mls/hr Q24H IV Last administered on 06/24/17at 10:40; Start 06/23/17 at 10:00 Enoxaparin Sodium (Lovenox Inj) 40 mg Q24H SQ Last administered on 06/23/17at 14: 23; Start 06/22/17 at 14:00 Lactulose (Lactulose Liq) 30 ml DAILY PRN PO SEVERE CONSITIPATION; Start at 22:15 Magnesium Hydroxide (Milk Of Magnesia Liq) 30 ml Q12H PRN PO Mild constipation ; Start 06/21/17 at 22:15 Ondansetron HCl (Zofran Inj) 4 mg Q6H PRN IVP NAUSEA OR VOMITING; Start at 22:15 Potassium Chloride (KCl) 30 meq ONCE ONCE PO Last administered on 06/22/17at 12: 39; Start 06/22/17 at 12:30; Stop 06/22/17 at 12:31; Status DC Senna/Docusate Sodium ([place]-Colace) 1 tab BID PO Last administered on 06/22/17at 07:40; Start 06/22/17 at 09:00 Sennosides (Senokot) 17.2 mg Q12H PRN PO Moderate constipation; Start 06/21/17 at 22:15 Sodium Chloride (NS Flush) 2 ml BID IV FLUSH ; Start 06/22/17 at 09:00 Tetanus/ Diphtheria Toxoids (Tetanus/ Diphtheria Tox Adult) 0.5 ml ONCE ONCE IM Last administered on 06/21/17at 21:47; Start 06/21/17 at 19:45; Stop 06/21/17 at 19:46; Status DC A/P Problem List: (1) Encephalopathy ICD Code: G93.40 - Encephalopathy, unspecified (2) Hypokalemia ICD Code: E87.6 - Hypokalemia (3) Dehydration ICD Code: E86.0 - Dehydration (4) Influenza ICD Code: J11.1 - Influenza due to unidentified influenza virus with other respiratory manifestations Status: Acute (5) Rhabdomyolysis ICD Code: M62.82 - Rhabdomyolysis Status: Acute (6) Generalized weakness ICD Code: R53.1 - Weakness Status: Acute Assessment and Plan 1. Encephalopathy: s/p fall, no head trauma reported, now w/ increased confusion per family, likely secondary to underlying infection as Flu + and UTI as well. CT Head w/ ventriculomegaly, no acute findings, CT C-Spine negative for fracture. PT for eval/tx. start on Rocephin- UC with enterobacter. 2. Rhabdomyolysis: improving. continue IVF for hydration, check serial CPK for trend. Monitor kidney function closely. 3. Dehydration: GFR 63, BUN 30, IVF for hydration, improving. Monitor. 4. Influenza B+: c/o generalized weakness, body aches, flu-like symptoms. IVF for hydration, symptom relief as needed. 5. Transaminitis: Secondary to above. Monitor LFT trend. Repeat labs in a.m. 6. Hypokalemia: replaced. 7. Generalized Weakness: secondary to acute viral syndrome/acute illness and dehydration. PT for eval/tx. 8. DVT Prophylaxis: Lovenox sq Discharge Planning dc to SNF in am if stable. Justin Whyte MD Jun 24, 2017 11:47
[2017-06-24 13:03] VITALS: BP 141/65; PULSE 72; RESP 18; TEMP 98.5; O2SAT 95
[2017-06-24 13:56] VITALS: BP 140/64; PULSE 72; RESP 16; TEMP 99; O2SAT 93
[2017-06-24] MEDS: ENOXAPARIN SODIUM 40 MG/0.4 ML SYRINGE SQ SCH (15:08)
[2017-06-24 20:03] VITALS: BP 154/70; PULSE 75; RESP 20; TEMP 97.8; O2SAT 96
[2017-06-25] VITALS (8 sets, daily range): BP systolic 140–146; BP diastolic 60–67; PULSE 67–80; RESP 16–20; TEMP 97.7–98.3; O2SAT 93–98
[2017-06-25] MEDS: SODIUM CHLOR 0.9% 1000 ML INJ 1,000 ML IV SCH ×3 (02:38→14:26)
[2017-06-25] MEDS: SODIUM CHLORIDE 0.9% FLUSH 10 ML FLUSH IV FLUSH SCH ×2 (09:00→21:00)
[2017-06-25] MEDS: DOCUSATE SODIUM 50 MG/SENNA 8.6 MG TAB PO SCH ×2 (09:00→21:00)
[2017-06-25 09:14] LABS: ALBUMIN 2.3 GM/DL (3.4-5.0); ALT (GPT) 111 U/L (10-53); AST (GOT) 88 U/L (15-37); BICARBONATE 25.7 MEQ/L (21.0-32.0); BLOOD UREA NITROGEN 10 MG/DL (7-18); CALCIUM 7.8 MG/DL (8.5-10.1); CHLORIDE 101 MEQ/L (98-107); CREATININE 0.46 MG/DL (0.50-1.00); GLOMERULAR FILTRATION RATE 131 ML/MIN (>89); GLUCOSE,RANDOM 94 MG/DL (74-106); SODIUM (NA) 135 MEQ/L (136-145)
[2017-06-25 09:15] LABS: ALKALINE PHOSPHATASE 19 U/L (45-117); TOTAL BILIRUBIN ADULT 0.6 MG/DL (0.2-1.0)
--- NOTE | 2017-06-25 09:25 | HHI.PR ---
Subjective Remarks in no acute distress. no sob. no fever. no new complaints. wants to go to rehab. Objective Vitals Vital Signs Date Time Temp Pulse Resp B/P (MAP) Pulse Ox O2 Delivery O2 Flow Rate FiO2 06/25/17 04:51 98.3 79 19 146/66 (92) 98 06/25/17 00:49 98.0 77 20 146/65 (92) 97 06/24/17 20:03 97.8 75 20 154/70 (98) 96 06/24/17 13:56 99.0 72 16 140/64 (89) 93 06/24/17 13:03 98.5 72 18 141/65 (90) 95 I/O 06/24/17 06/24/17 06/24/17 06/25/17 06/25/17 06/25/17 07:00 15:00 23:00 07:00 15:00 23:00 Intake Total 200 ml 300 ml Balance 200 ml 300 ml Intake Oral 200 ml 300 ml # Voids 2 # Bowel Movements 1 Result Diagram: 06/22/17 0417 06/25/17 0747 Imaging Last Impressions Chest X-Ray 06/21/171943 Signed Impressions: Service Date/Time: Wednesday, June 21, 2017 19:57 - CONCLUSION: No acute disease. Gilbert Aguilar MD Head CT 06/21/17 0000 Signed Impressions: Service Date/Time: Wednesday, June 21, 2017 20:14 - CONCLUSION: 1. Ventriculomegaly characteristic of hydrocephalus. 2. No evidence of acute infarct, hemorrhage, mass or edema. Gilbert Aguilar MD Cervical Spine CT 06/21/17 0000 Signed Impressions: Service Date/Time: Wednesday, June 21, 2017 20:16 - CONCLUSION: 1. No evidence of acute fracture or traumatic listhesis. 2. Deformity left C5-6 facet joints which may be developmental or posttraumatic from previous injury. 3. Dextroscoliosis of the cervical spine Gilbert Aguilar MD Objective Remarks GENERAL: This is a well-nourished, well-developed patient, in no apparent distress. CARDIOVASCULAR: Regular rate and regular rhythm without murmurs, gallops, or rubs. RESPIRATORY: Clear to auscultation. Breath sounds equal bilaterally. No wheezes , rales, or rhonchi. GASTROINTESTINAL: Abdomen soft, non-tender, nondistended. Normal, active bowel sounds MUSCULOSKELETAL: Extremities without clubbing, cyanosis, or edema. NEURO: Alert & Oriented x4 to person, place, time, situation. Moves all ext x4 Medications and IVs Inpatient Medications Acetaminophen (Tylenol) 650 mg Q6H PRN PO FEVER/PAIN SCALE 1 TO 2; Start at 22:15 Acetaminophen/ Hydrocodone Bitart ([place] 5-325 Mg) 1 tab Q4H PRN PO PAIN SCALE 3 TO 5; Start 06/21/17 at 22:15 Acetaminophen/ Hydrocodone Bitart ([place] 10-325 Mg) 1 tab Q4H PRN PO PAIN SCALE 6 TO 10; Start 06/21/17 at 22:15 Bisacodyl (Dulcolax Supp) 10 mg DAILY PRN RECTAL SEVERE CONSITIPATION; Start at 22:15 Calcium Carbonate (Tums Chew) 500 mg ONCE ONCE CHEW Last administered on at 16:48; Start 06/23/17 at 15:00; Stop 06/23/17 at 15:01; Status DC Calcium Gluconate 1 gm/Sodium Chloride 110 ml @ 110 mls/hr ONCE ONCE IV Last administered on 06/22/17at 12:41; Start 06/22/17 at 11:00; Stop 06/22/17 at 11:59; Status DC Ceftriaxone Sodium 1000 mg/ Sodium Chloride 100 ml @ 200 mls/hr Q24H IV Last administered on 06/24/17at 10:40; Start 06/23/17 at 10:00 Enoxaparin Sodium (Lovenox Inj) 40 mg Q24H SQ Last administered on 06/24/17at 15: 08; Start 06/22/17 at 14:00 Lactulose (Lactulose Liq) 30 ml DAILY PRN PO SEVERE CONSITIPATION; Start at 22:15 Magnesium Hydroxide (Milk Of Magnesia Liq) 30 ml Q12H PRN PO Mild constipation ; Start 06/21/17 at 22:15 Ondansetron HCl (Zofran Inj) 4 mg Q6H PRN IVP NAUSEA OR VOMITING; Start at 22:15 Potassium Chloride (KCl) 30 meq ONCE ONCE PO Last administered on 06/22/17at 12: 39; Start 06/22/17 at 12:30; Stop 06/22/17 at 12:31; Status DC Senna/Docusate Sodium ([place]-Colace) 1 tab BID PO Last administered on 06/22/17at 07:40; Start 06/22/17 at 09:00 Sennosides (Senokot) 17.2 mg Q12H PRN PO Moderate constipation; Start 06/21/17 at 22:15 Sodium Chloride (NS Flush) 2 ml BID IV FLUSH ; Start 06/22/17 at 09:00 Tetanus/ Diphtheria Toxoids (Tetanus/ Diphtheria Tox Adult) 0.5 ml ONCE ONCE IM Last administered on 06/21/17at 21:47; Start 06/21/17 at 19:45; Stop 06/21/17 at 19:46; Status DC A/P Problem List: (1) Encephalopathy ICD Code: G93.40 - Encephalopathy, unspecified (2) Hypokalemia ICD Code: E87.6 - Hypokalemia (3) Dehydration ICD Code: E86.0 - Dehydration (4) Influenza ICD Code: J11.1 - Influenza due to unidentified influenza virus with other respiratory manifestations Status: Acute (5) Rhabdomyolysis ICD Code: M62.82 - Rhabdomyolysis Status: Acute (6) Generalized weakness ICD Code: R53.1 - Weakness Status: Acute Assessment and Plan 1. Encephalopathy: s/p fall, no head trauma reported, now w/ increased confusion per family, likely secondary to underlying infection as Flu + and UTI as well. CT Head w/ ventriculomegaly, no acute findings, CT C-Spine negative for fracture. PT for eval/tx. start on Rocephin- UC with enterobacter; will switch to cipro upon discharge. 2. Rhabdomyolysis: improved. 3. Dehydration: improved. 4. Influenza B+:overall feeling better. 5. Transaminitis: Secondary to above. improved. 6. Hypokalemia: replaced. 7. Generalized Weakness: secondary to acute viral syndrome/acute illness and dehydration. PT for eval/tx. 8. DVT Prophylaxis: Lovenox sq Discharge Planning dc to SNF when arrangements made. f/u; pcp. Justin Whyte MD Jun 25, 2017 09:25
[2017-06-25] MEDS ORDERED: Calcium Carbonate Chew CHEW (09:27)
--- NOTE | 2017-06-25 09:27 | HHI.DS ---
Discharge Summary Admission Date Jun 21, 2017 at 21:59 Discharge Date: Jun 25, 2017 Admitting Diagnosis rhabdomyolysis, influenza (1) Encephalopathy ICD Code: G93.40 - Encephalopathy, unspecified Diagnosis: Principal (2) Hypokalemia ICD Code: E87.6 - Hypokalemia Diagnosis: Secondary (3) Dehydration ICD Code: E86.0 - Dehydration Diagnosis: Principal (4) Influenza ICD Code: J11.1 - Influenza due to unidentified influenza virus with other respiratory manifestations Diagnosis: Principal Status: Acute (5) Rhabdomyolysis ICD Code: M62.82 - Rhabdomyolysis Diagnosis: Principal Status: Acute (6) Generalized weakness ICD Code: R53.1 - Weakness Diagnosis: Principal Status: Acute Procedures none Brief History - From Admission This is a 76-year-old female with a PMH of Hydrocephalus and Hyperlipidemia was brought to the ER by EMS secondary to fall. Pt w/ generalized weakness, s/p fall 2 days ago, now w/ progressive confusion noted by family. Pt poor historian, unable to provide much history, but states she feels well at this time. Does note muscle aches and fatigue for approx 1wk. No fever, chills or sick contacts. On arrival, BP 135/72, HR 84, O2 sat 97% on RA, Afebrile. CBC unremarkable. K+ 3.4. GFR 63. LFTs elevated. CPK 5740. UA pending. CT Head with ventriculomegaly characteristic of hydrocephalus, no acute findings. CT C-spine with no acute fracture or trauma. CXR with no acute findings. Flu B + CBC/BMP: 06/22/17 0417 06/25/17 0747 Significant Findings Laboratory Tests Test 06/23/17 04:20 06/24/17 06:59 06/25/17 07:47 Creatinine 0.47 MG/DL (0.50-1.00) 0.46 MG/DL (0.50-1.00) Total Protein 5.6 GM/DL (6.4-8.2) 5.8 GM/DL (6.4-8.2) 6.0 GM/DL (6.4-8.2) Albumin 2.4 GM/DL (3.4-5.0) 2.3 GM/DL (3.4-5.0) 2.3 GM/DL (3.4-5.0) Calcium Level 7.4 MG/DL (8.5-10.1) 7.9 MG/DL (8.5-10.1) 7.8 MG/DL (8.5-10.1) Alkaline Phosphatase 18 U/L (45-117) 18 U/L (45-117) 19 U/L (45-117) Aspartate Amino Transf (AST/SGOT) 136 U/L (15-37) 129 U/L (15-37) 88 U/L (15-37) Alanine Aminotransferase (ALT/SGPT) 81 U/L (10-53) 125 U/L (10-53) 111 U/L (10-53) Chloride Level 109 MEQ/L (98-107) Protein Corrected Calcium 8.2 MG/DL (8.5-10.1) Total Creatine Kinase 2624 U/L (26-192) 1181 U/L (26-192) 705 U/L (26-192) Creatine Kinase MB 5.0 NG/ML (0.5-3.6) Sodium Level 135 MEQ/L (136-145) Imaging Last Impressions Chest X-Ray 06/21/17 1944 Signed Impressions: Service Date/Time: Wednesday, June 21, 2017 19:57 - CONCLUSION: No acute disease. Gilbert Aguilar MD Head CT 06/21/17 0000 Signed Impressions: Service Date/Time: Wednesday, June 21, 2017 20:14 - CONCLUSION: 1. Ventriculomegaly characteristic of hydrocephalus. 2. No evidence of acute infarct, hemorrhage, mass or edema. Gilbert Aguilar MD Cervical Spine CT 06/21/17 0000 Signed Impressions: Service Date/Time: Wednesday, June 21, 2017 20:16 - CONCLUSION: 1. No evidence of acute fracture or traumatic listhesis. 2. Deformity left C5-6 facet joints which may be developmental or posttraumatic from previous injury. 3. Dextroscoliosis of the cervical spine Gilbert Aguilar MD PE at Discharge GENERAL: This is a well-nourished, well-developed patient, in no apparent distress. CARDIOVASCULAR: Regular rate and regular rhythm without murmurs, gallops, or rubs. RESPIRATORY: Clear to auscultation. Breath sounds equal bilaterally. No wheezes , rales, or rhonchi. GASTROINTESTINAL: Abdomen soft, non-tender, nondistended. Normal, active bowel sounds MUSCULOSKELETAL: Extremities without clubbing, cyanosis, or edema. NEURO: Alert & Oriented x4 to person, place, time, situation. Moves all ext x4 Hospital Course patient was admitted with generalized weakness-likely due to flu and UTI. she was found to have rhabdomyolysis. she was started on IV fluid. she was evaluated by PT. overall her condition improved. she will be discharged to rehab with po antibiotic for UTI. Pt Condition on Discharge: Stable Discharge Disposition: Discharge to SNF Discharge Time: <= 30 minutes Discharge Instructions DIET: Follow Instructions for: Heart Healthy Diet Activities you can perform: Regular-No Restrictions Justin Whyte MD Jun 25, 2017 09:27
[2017-06-25] MEDS ORDERED: SIMV40TA PO (09:28)
--- NOTE | 2017-06-25 09:28 | HHI.DCPOC ---
Discharge Care Plan Diagnosis: (1) UTI (urinary tract infection) (2) Influenza (3) Dehydration (4) Encephalopathy (5) Rhabdomyolysis (6) Generalized weakness Goals to Promote Your Health * To prevent worsening of your condition and complications * To maintain your health at the optimal level Directions to Meet Your Goals Take your medications as prescribed Follow your dietary instruction Follow activity as directed Keep your appointments as scheduled Take your immunizations and boosters as scheduled If your symptoms worsen call your PCP, if no PCP go to Urgent Care Center or Emergency Room Smoking is Dangerous to Your Health. Avoid second hand smoke Call the 24-hour hour crisis hotline for domestic abuse at Victorina Bowers PA-C Jun 25, 2017 9:28 am
[2017-06-25] MEDS ORDERED: CIPR250T52 PO (09:30)
[2017-06-25] MEDS: CALCIUM CARBONATE 500 MG CHEWABLE TAB CHEW SCH ×2 (09:33→22:39)
[2017-06-25] MEDS: cefTRIAXone INJ 1,000 MG in SODIUM CHLORIDE 0.9% INJ 100 ML IV SCH (09:34)
[2017-06-25] MEDS: ENOXAPARIN SODIUM 40 MG/0.4 ML SYRINGE SQ SCH (14:00)
[2017-06-26] VITALS (9 sets, daily range): BP systolic 139–181; BP diastolic 65–88; PULSE 65–100; RESP 16–20; TEMP 97.9–98.9; O2SAT 92–93
[2017-06-26] MEDS: SODIUM CHLOR 0.9% 1000 ML INJ 1,000 ML IV SCH (06:02)
[2017-06-26] MEDS: SODIUM CHLORIDE 0.9% FLUSH 10 ML FLUSH IV FLUSH SCH (09:00)
--- NOTE | 2017-06-26 10:34 | HHI.PR ---
Subjective Remarks in no acute distress. resting comfortably with no distress. denies sob, cough. no fever. no new complaints. Objective Vitals Vital Signs Date Time Temp Pulse Resp B/P (MAP) Pulse Ox O2 Delivery O2 Flow Rate FiO2 06/26/17 07:55 73 06/26/17 07:25 98.6 80 16 139/88 (105) 92 06/26/17 05:03 154/75 (101) 06/26/17 04:28 97.9 81 20 181/65 (103) 93 06/26/17 04:00 65 06/26/17 00:01 98.2 75 18 152/69 (96) 93 06/26/17 00:00 75 06/25/17 21:33 97.7 75 18 146/66 (92) 93 06/25/17 20:00 71 06/25/17 17:54 79 06/25/17 16:04 98.1 67 16 140/60 (86) 93 06/25/17 12:14 70 I/O 06/25/17 06/25/17 06/25/17 06/26/17 06/26/17 06/26/17 07:00 15:00 23:00 07:00 15:00 23:00 Intake Total 300 ml Balance 300 ml Intake Oral 300 ml # Voids 2 4 # Bowel Movements 1 Result Diagram: 06/22/17 0417 06/25/17 0747 Imaging Last Impressions Chest X-Ray 06/21/17 194 Signed Impressions: Service Date/Time: Wednesday, June 21, 2017 19:57 - CONCLUSION: No acute disease. Gilbert Aguilar MD Head CT 06/21/17 0000 Signed Impressions: Service Date/Time: Wednesday, June 21, 2017 20:14 - CONCLUSION: 1. Ventriculomegaly characteristic of hydrocephalus. 2. No evidence of acute infarct, hemorrhage, mass or edema. Gilbert Aguilar MD Cervical Spine CT 06/21/17 0000 Signed Impressions: Service Date/Time: Wednesday, June 21, 2017 20:16 - CONCLUSION: 1. No evidence of acute fracture or traumatic listhesis. 2. Deformity left C5-6 facet joints which may be developmental or posttraumatic from previous injury. 3. Dextroscoliosis of the cervical spine Gilbert Aguilar MD Objective Remarks GENERAL: This is a well-nourished, well-developed patient, in no apparent distress. CARDIOVASCULAR: Regular rate and regular rhythm without murmurs, gallops, or rubs. RESPIRATORY: Clear to auscultation. Breath sounds equal bilaterally. No wheezes , rales, or rhonchi. GASTROINTESTINAL: Abdomen soft, non-tender, nondistended. Normal, active bowel sounds MUSCULOSKELETAL: Extremities without clubbing, cyanosis, or edema. NEURO: Alert & Oriented x4 to person, place, time, situation. Moves all ext x4 Procedures none Medications and IVs Inpatient Medications Acetaminophen (Tylenol) 650 mg Q6H PRN PO FEVER/PAIN SCALE 1 TO 2 Last administered on 06/25/17at 12:41; Start 06/21/17 at 22:15 Acetaminophen/ Hydrocodone Bitart ([place] 5-325 Mg) 1 tab Q4H PRN PO PAIN SCALE 3 TO 5; Start 06/21/17 at 22:15 Acetaminophen/ Hydrocodone Bitart ([place] 10-325 Mg) 1 tab Q4H PRN PO PAIN SCALE 6 TO 10; Start 06/21/17 at 22:15 Bisacodyl (Dulcolax Supp) 10 mg DAILY PRN RECTAL SEVERE CONSITIPATION; Start at 22:15 Calcium Carbonate (Tums Chew) 500 mg ONCE ONCE CHEW Last administered on at 16:48; Start 06/23/17 at 15:00; Stop 06/23/17 at 15:01; Status DC Calcium Gluconate 1 gm/Sodium Chloride 110 ml @ 110 mls/hr ONCE ONCE IV Last administered on 06/22/17at 12:41; Start 06/22/17 at 11:00; Stop 06/22/17 at 11:59; Status DC Ceftriaxone Sodium 1000 mg/ Sodium Chloride 100 ml @ 200 mls/hr Q24H IV Last administered on 06/25/17at 09:34; Start 06/23/17 at 10:00 Enoxaparin Sodium (Lovenox Inj) 40 mg Q24H SQ Last administered on 06/24/17at 15: 08; Start 06/22/17 at 14:00 Lactulose (Lactulose Liq) 30 ml DAILY PRN PO SEVERE CONSITIPATION; Start at 22:15 Magnesium Hydroxide (Milk Of Magnesia Liq) 30 ml Q12H PRN PO Mild constipation ; Start 06/21/17 at 22:15 Ondansetron HCl (Zofran Inj) 4 mg Q6H PRN IVP NAUSEA OR VOMITING; Start at 22:15 Potassium Chloride (KCl) 30 meq ONCE ONCE PO Last administered on 06/22/17at 12: 39; Start 06/22/17 at 12:30; Stop 06/22/17 at 12:31; Status DC Senna/Docusate Sodium ([place]-Colace) 1 tab BID PO Last administered on 06/22/17at 07:40; Start 06/22/17 at 09:00 Sennosides (Senokot) 17.2 mg Q12H PRN PO Moderate constipation; Start 06/21/17 at 22:15 Sodium Chloride (NS Flush) 2 ml BID IV FLUSH ; Start 06/22/17 at 09:00 Tetanus/ Diphtheria Toxoids (Tetanus/ Diphtheria Tox Adult) 0.5 ml ONCE ONCE IM Last administered on 06/21/17at 21:47; Start 06/21/17 at 19:45; Stop 06/21/17 at 19:46; Status DC A/P Problem List: (1) Encephalopathy ICD Code: G93.40 - Encephalopathy, unspecified (2) Hypokalemia ICD Code: E87.6 - Hypokalemia (3) Dehydration ICD Code: E86.0 - Dehydration (4) Influenza ICD Code: J11.1 - Influenza due to unidentified influenza virus with other respiratory manifestations Status: Acute (5) Rhabdomyolysis ICD Code: M62.82 - Rhabdomyolysis Status: Acute (6) Generalized weakness ICD Code: R53.1 - Weakness Status: Acute Assessment and Plan 1. Encephalopathy: likely secondary to underlying infection as Flu + and UTI as well- now has resolved. CT Head w/ ventriculomegaly, no acute findings, CT C-Spine negative for fracture. PT for eval/tx. start on Rocephin- UC with enterobacter; will switch to cipro upon discharge. 2. Rhabdomyolysis: improved. 3. Dehydration: improved. 4. Influenza B+:no symptoms/ afebrile- the patient is not contagious. 5. Transaminitis: Secondary to above. improved. 6. Hypokalemia: replaced. 7. Generalized Weakness: secondary to acute viral syndrome/acute illness and dehydration. PT for eval/tx. 8. DVT Prophylaxis: Lovenox sq Discharge Planning dc to SNF when arrangements made. f/u; pcp. Justin Whyte MD Jun 26, 2017 10:34
[2017-06-26] MEDS: CALCIUM CARBONATE 500 MG CHEWABLE TAB CHEW SCH (11:08)
[2017-06-26] MEDS: DOCUSATE SODIUM 50 MG/SENNA 8.6 MG TAB PO SCH (11:08)
[2017-06-26] MEDS: cefTRIAXone INJ 1,000 MG in SODIUM CHLORIDE 0.9% INJ 100 ML IV SCH (11:09)
== END 2017-06-26 13:54 | DRG 193 ==
LOC: NEPE 19:27 → NEDA 21:59 → NEPGCP 06-22 00:56
PROVIDERS: ADMIT Internal Medicine; ATTEND Internal Medicine
DX: J10.1 Influenza due to other identified influenza virus with other respiratory manifestations (principal); G93.40 Encephalopathy, unspecified; N39.0 Urinary tract infection, site not specified; G91.9 Hydrocephalus, unspecified; M62.82 Rhabdomyolysis; E86.0 Dehydration; E83.51 Hypocalcemia; S50.811A Abrasion of right forearm, initial encounter; W06.XXXA Fall from bed, initial encounter; Y93.89 Activity, other specified; Y92.003 Bedroom of unspecified non-institutional (private) residence as the place of occurrence of the external cause; M54.2 Cervicalgia; E87.6 Hypokalemia; E78.5 Hyperlipidemia, unspecified; M60.9 Myositis, unspecified; R74.0 Nonspecific elevation of levels of transaminase and lactic acid dehydrogenase [LDH]
CPT/HCPCS: 70450; 71045; 72125; 80053; 82550; 82552; 83735; 85025; 87077; 87086; 87186; 87804; 90471; 90714; 93005; J0610; J0696; J1650; J7030

== ENCOUNTER 2017-07-09 15:21 | Inpatient (IN) | payer MEDICARE ==
[~2017-07-09] VITALS: Ht 162.6 cm; Wt 65.9 kg
[2017-07-09] VITALS (7 sets, daily range): BP systolic 110–179; BP diastolic 61–76; PULSE 75–104; RESP 15–18; TEMP 95.5–100; O2SAT 96–100
[~2017-07-09 15:21] MED LIST: CIPR250T52 PO; Calcium Carbonate Chew CHEW; SIMV40TA PO
[2017-07-09] MEDS ORDERED: IOHEXOL 350 MG/ML 10 ML VIAL (for RAD DIAG) IVCONTRAST ONE (15:22)
[2017-07-09] MEDS ORDERED: ASPI-516 PO (15:35)
[2017-07-09] MEDS ORDERED: MORPHINE SULFATE 4 MG/ML INJ IV PUSH ONE (15:45)
[2017-07-09] MEDS ORDERED: SODIUM CHLORIDE 0.9% FLUSH 10 ML FLUSH IVF PRN (15:45)
[2017-07-09] MEDS ORDERED: ONDANSETRON HCL 4 MG/2 ML VIAL IV PUSH ONE (15:45)
--- NOTE | 2017-07-09 15:47 | PD ---
HPI Chief Complaint: Fall Time Seen by Provider: 15:28 Travel History International Travel<30 days: No Contact w/Intl Traveler<30days: No Traveled to known affect area: No History of Present Illness HPI The patient is a 77-year-old female who presents to the emergency department from [facility] after a fall on Friday. The patient states she fell going into her closet, complaining of left-sided chest pain. The patient apparently had an outpatient chest x-ray which revealed a 20% apical pneumothorax and a fracture the seventh rib. The patient does complain of left- sided chest wall pain is worse with inspiration, coughing, movement, and at rest. She denies any outright shortness of breath or upper abdominal pain. The patient was recently admitted to the hospital the beginning of June for rhabdomyolysis, received IV fluids and was discharged [facility]. She denies any head injury or loss of consciousness during the fall. She denies any neck pain, lower abdominal pain, or weakness of the upper or lower extremities. Symptoms are moderate. There are no alleviating factors. PFSH Past Medical History Hx Anticoagulant Therapy: Yes (ASA) Blood Disorders: No Cancer: No Cardiovascular Problems: Yes High Cholesterol: Yes Diminished Hearing: No Endocrine: No Genitourinary: No Immune Disorder: No Musculoskeletal: No Neurologic: No Psychiatric: No Reproductive: No Respiratory: No Social History Alcohol Use: No Tobacco Use: No Substance Use: No Allergies-Medications (Allergen,Severity, Reaction): Coded Allergies: No Known Allergies (Unverified , 07/09/17) Reported Meds & Prescriptions Reported Meds & Active Scripts Active Simvastatin 40 Mg Tab 40 Mg PO HS Reported Aspirin 81 Mg Chew 81 Mg PO DAILY Review of Systems Except as stated in HPI: all other systems reviewed are Neg General / Constitutional: No: Fever HENT: No: Headaches, Neck Pain Cardiovascular: Positive: Chest Pain or Discomfort Respiratory: No: Shortness of Breath Gastrointestinal: No: Nausea, Vomiting, Abdominal Pain Musculoskeletal: No: Weakness Neurologic: No: Dizziness Physical Exam Narrative GENERAL: Awake, alert, pleasant 77 year-old female who appears her stated age and is in no acute respiratory distress. SKIN: Focused skin assessment warm/dry. HEAD: Atraumatic. Normocephalic. EYES: No injection or drainage. ENT: No nasal bleeding or discharge. Mucous membranes pink and moist. NECK: Trachea midline. No JVD. CARDIOVASCULAR: Regular rate and rhythm. No murmur appreciated. Tender to palpation of the lateral left chest wall. No crepitus noted. RESPIRATORY: No accessory muscle use. Clear to auscultation. Diminished breath sounds left lung. GASTROINTESTINAL: Abdomen soft, non-tender, nondistended. No guarding or rigidity. MUSCULOSKELETAL: No obvious deformities. No clubbing. No cyanosis. No edema. NEUROLOGICAL: Awake and alert. No obvious cranial nerve deficits. Motor grossly within normal limits. Normal speech. Nonfocal. PSYCHIATRIC: Appropriate mood and affect; insight and judgment normal. Data Data Last Documented VS Vital Signs Date Time Temp Pulse Resp B/P (MAP) Pulse Ox O2 Delivery O2 Flow Rate FiO2 07/09/17 17:13 97.8 88 18 149/63 (91) 100 Room Air 3.00 Orders Orders Basic Metabolic Panel (Bmp) (07/09/17 15:40) Complete Blood Count With Diff (07/09/17 15:40) Prothrombin Time / Inr (Pt) (07/09/17 15:40) Act Partial Throm Time (Ptt) (07/09/17 15:40) Type And Screen (07/09/17 15:40) Chest, Single Ap (07/09/17 15:40) Ct Abd/Pel W Iv Contrast(Rout) (07/09/17 15:40) Ct Thorax/ Chest W Iv Contrast (07/09/17 15:40) Iv Access Insert/Monitor (07/09/17 15:40) Ecg Monitoring (07/09/17 15:40) Oximetry (07/09/17 15:40) Oxygen Administration (07/09/17 15:40) Morphine Inj (Morphine Inj) (07/09/17 15:45) Ondansetron Inj (Zofran Inj) (07/09/17 15:45) Sodium Chloride 0.9% Flush (Ns Flush) (07/09/17 15:45) Iohexol 350 Inj (Omnipaque 350 Inj) (07/09/17 15:22) Admit Order (Ed Use Only) (07/09/17 17:32) Labs Laboratory Tests Test 07/09/17 15:45 White Blood Count 12.9 TH/MM3 Red Blood Count 4.52 MIL/MM3 Hemoglobin 13.5 GM/DL Hematocrit 39.9 % Mean Corpuscular Volume 88.2 FL Mean Corpuscular Hemoglobin 29.8 PG Mean Corpuscular Hemoglobin Concent 33.8 % Red Cell Distribution Width 13.4 % Platelet Count 534 TH/MM3 Mean Platelet Volume 8.8 FL Neutrophils (%) (Auto) 78.5 % Lymphocytes (%) (Auto) 8.0 % Monocytes (%) (Auto) 12.1 % Eosinophils (%) (Auto) 1.1 % Basophils (%) (Auto) 0.3 % Neutrophils # (Auto) 10.1 TH/MM3 Lymphocytes # (Auto) 1.0 TH/MM3 Monocytes # (Auto) 1.6 TH/MM3 Eosinophils # (Auto) 0.1 TH/MM3 Basophils # (Auto) 0.0 TH/MM3 CBC Comment DIFF FINAL Differential Comment Prothrombin Time 10.0 SEC Prothromb Time International Ratio 1.0 RATIO Activated Partial Thromboplast Time 24.5 SEC Blood Urea Nitrogen 15 MG/DL Creatinine 0.79 MG/DL Random Glucose 115 MG/DL Calcium Level 9.1 MG/DL Sodium Level 139 MEQ/L Potassium Level 3.8 MEQ/L Chloride Level 102 MEQ/L Carbon Dioxide Level 28.7 MEQ/L Anion Gap 8 MEQ/L Estimat Glomerular Filtration Rate 70 ML/MIN MDM Medical Decision Making Medical Screen Exam Complete: Yes Emergency Medical Condition: Yes Medical Record Reviewed: Yes Interpretation(s) Last Impressions Chest X-Ray 07/09/17 1540 Signed Impressions: Service Date/Time: Sunday, July 09, 2017 15:57 - CONCLUSION: Left rib fractures with left 3 cm pneumothorax. Chevy John MD FACR Abdomen/Pelvis CT 07/09/17 1540 Signed Impressions: Service Date/Time: Sunday, July 09, 2017 16:44 - CONCLUSION: Moderate left pneumothorax with left rib fractures Abdominal contents are unremarkable. Chevy John MD FACR CT of the thorax reveals left pneumothorax measuring 3 cm with left rib fractures and trace pleural effusion. The patient fractured the left sixth, seventh, eighth, and ninth ribs. Laboratory Tests Test 07/09/17 15:45 White Blood Count 12.9 TH/MM3 Red Blood Count 4.52 MIL/MM3 Hemoglobin 13.5 GM/DL Hematocrit 39.9 % Mean Corpuscular Volume 88.2 FL Mean Corpuscular Hemoglobin 29.8 PG Mean Corpuscular Hemoglobin Concent 33.8 % Red Cell Distribution Width 13.4 % Platelet Count 534 TH/MM3 Mean Platelet Volume 8.8 FL Neutrophils (%) (Auto) 78.5 % Lymphocytes (%) (Auto) 8.0 % Monocytes (%) (Auto) 12.1 % Eosinophils (%) (Auto) 1.1 % Basophils (%) (Auto) 0.3 % Neutrophils # (Auto) 10.1 TH/MM3 Lymphocytes # (Auto) 1.0 TH/MM3 Monocytes # (Auto) 1.6 TH/MM3 Eosinophils # (Auto) 0.1 TH/MM3 Basophils # (Auto) 0.0 TH/MM3 CBC Comment DIFF FINAL Differential Comment Prothrombin Time 10.0 SEC Prothromb Time International Ratio 1.0 RATIO Activated Partial Thromboplast Time 24.5 SEC Blood Urea Nitrogen 15 MG/DL Creatinine 0.79 MG/DL Random Glucose 115 MG/DL Calcium Level 9.1 MG/DL Sodium Level 139 MEQ/L Potassium Level 3.8 MEQ/L Chloride Level 102 MEQ/L Carbon Dioxide Level 28.7 MEQ/L Anion Gap 8 MEQ/L Estimat Glomerular Filtration Rate 70 ML/MIN Differential Diagnosis Differential diagnosis includes rib fracture, pneumothorax, hemothorax, splenic injury, tension pneumothorax, rib contusion, flail chest. Narrative Course IV was established, labs are drawn and sent, and the patient was placed on cardiac telemetry monitoring and continuous pulse oximetry monitoring. Upright chest x-ray was performed. CT of the abdomen and pelvis with thorax was ordered. The patient was administered morphine and Zofran. Chest x-ray reveals left pneumothorax and rib fracture. CT of the thorax and abdomen/ pelvis were obtained revealing a 3 cm left pneumothorax and rib fractures of the sixth, seventh, eighth, ninth ribs with trace pleural effusion and/or small hemothorax. I discussed the patient with the trauma surgeon, Dr. Jones, who states to not place a chest tube initially he will evaluate the CT findings. The patient was placed on oxygen via O2 nasal cannula at 6 L. The patient will be admitted to the trauma service. Physician Communication Physician Communication I discussed the patient with the on-call trauma surgeon, Dr. Jones, who agrees with admission. Diagnosis Primary Impression: Pneumothorax, left Additional Impression: Multiple rib fractures Qualified Codes: S22.42XA - Multiple fractures of ribs, left side, initial encounter for closed fracture Admitting Information Admitting Physician Requests: Admit Condition: Stable Delta Manjarrez MD Jul 09, 2017 15:47
[2017-07-09 16:09] LABS: AUTOMATED NEUTROPHIL # 10.1 TH/MM3 (1.8-7.7); BASOPHIL % 0.3 % (0.0-2.0); EOSINOPHIL # 0.1 TH/MM3 (0-0.4); EOSINOPHIL % 1.1 % (0.0-4.0); HEMATOCRIT 39.9 % (35.0-46.0); HEMOGLOBIN 13.5 GM/DL (11.6-15.3); MEAN CELL VOLUME 88.2 FL (80.0-100.0); MEAN CORPUSCULAR HEMOGLOBIN 29.8 PG (27.0-34.0); MEAN CORPUSCULAR HGB CONC 33.8 % (32.0-36.0); MEAN PLATELET VOLUME 8.8 FL (7.0-11.0); MONO % 12.1 % (0.0-8.0); MONOCYTE # 1.6 TH/MM3 (0-0.9); NEUT % 78.5 % (16.0-70.0); PLATELET COUNT 534 TH/MM3 (150-450); RED BLOOD COUNT 4.52 MIL/MM3 (4.00-5.30); RED CELL DISTRIBUTION WIDTH 13.4 % (11.6-17.2); WHITE BLOOD COUNT 12.9 TH/MM3 (4.0-11.0)
--- NOTE | 2017-07-09 16:14 | RADRPT ---
EXAM DATE/TIME: 07/09/2017 15:57 [facility] COMPARISON: CHEST SINGLE AP, June 21, 2017, 19:57. INDICATIONS : Pneumothorax, MEDICAL HISTORY : Hypercholesterolemia. Flu SURGICAL HISTORY : None. ENCOUNTER: Initial ACUITY: 1 day PAIN SCORE: 0/10 LOCATION: Bilateral chest FINDINGS: 3 cm left apical pneumothorax without tension. Fractures of the left sixth seventh eighth and ninth ribs with small left pleural effusion. Right lung is clear. CONCLUSION: Left rib fractures with left 3 cm pneumothorax. Chevy John MD FACR on July 09, 2017 at 16:11 Board Certified Radiologist. This report was verified electronically.
[2017-07-09 16:27] LABS: BICARBONATE 28.7 MEQ/L (21.0-32.0); CALCIUM 9.1 MG/DL (8.5-10.1); CREATININE 0.79 MG/DL (0.50-1.00)
--- NOTE | 2017-07-09 17:26 | RADRPT ---
EXAM DATE/TIME: 07/09/2017 16:44 [facility] COMPARISON: No previous studies available for comparison. INDICATIONS : Diffuse abdomen pain due to fall. IV CONTRAST: 77 cc Omnipaque 350 (iohexol) IV ORAL CONTRAST: No oral contrast ingested. RADIATION DOSE: 5.17 CTDIvol (mGy) ; Combined studies - Thorax/Abdomen/Pelvis MEDICAL HISTORY : Cardiovascular disease. SURGICAL HISTORY : None. ENCOUNTER: Initial ACUITY: 1 day PAIN SCALE: 4/10 LOCATION: Bilateral lower quadrant TECHNIQUE: Volumetric scanning of the abdomen and pelvis was performed. Using automated exposure control and ad justment of the mA and/or kV according to patient size, radiation dose was kept as low as reasonably achievable to obtain optimal diagnostic quality images. DICOM format image data is available electro nically for review and comparison. FINDINGS: Moderate left pneumothorax is noted. Right lung is clear. The liver is free of focal defects The gallbladder is unremarkable Spleen, pancreas and adrenals appear normal There is symmetric renal function Pelvis diverticuli are seen in the sigmoid colon without inflammatory changes Review of bone windows reveals left lower rib fractures no degenerative changes in lumbar spine. CONCLUSION: Moderate left pneumothorax with left rib fractures Abdominal contents are unremarkable. Chevy John MD FACR on July 09, 2017 at 17:20 Board Certified Radiologist. This report was verified electronically.
--- NOTE | 2017-07-09 17:29 | RADRPT ---
EXAM DATE/TIME: 07/09/2017 16:47 [facility] COMPARISON: CHEST SINGLE AP, July 09, 2017, 15:57. INDICATIONS : Rib pain due to fall. IV CONTRAST: 77 cc Omnipaque 350 (iohexol) IV RADIATION DOSE: 5.15 CTDIvol (mGy) ; Combined studies - Thorax/Abdomen/Pelvis MEDICAL HISTORY : Cardiovascular disease. SURGICAL HISTORY : None. ENCOUNTER: Initial ACUITY: 1 day PAIN SCALE: 4/10 LOCATION: Bilateral chest TECHNIQUE: Volumetric scanning of the chest was performed. Using automated exposure control and adjustment of the mA and/or kV according to patient size, radiation dose was kept as low as reasonab ly achievable to obtain optimal diagnostic quality images. DICOM format image data is available talya ctronically for review and comparison. Follow-up recommendations for detected pulmonary nodules are based at a minimum on nodule size and pa tient risk factors according to Fleischner Society Guidelines. FINDINGS: As the small left pneumothorax. Trace left pleural effusion is noted. Right lung is clear. Review of bone windows reveals fractures of the left sixth seventh eighth and ninth ribs. The mediastinal contents are unremarkable CONCLUSION: Left pneumothorax measuring 3 cm with left rib fractures and trace pleural effusion. Right lung clear. Chevy John MD FACR on July 09, 2017 at 17:23 Board Certified Radiologist. This report was verified electronically.
[2017-07-09] MEDS ORDERED: ONDANSETRON HCL 4 MG/2 ML VIAL IV PUSH PRN (18:15)
[2017-07-09] MEDS ORDERED: MORPHINE SULFATE 2 MG/ML INJ IV PUSH PRN (18:15)
[2017-07-09] MEDS ORDERED: Post-op Orders (for Pharmacy) XX ONE (18:15)
[2017-07-09] MEDS ORDERED: NALOXONE HCL 0.4 MG/ML AMP IV PUSH PRN (18:15)
[2017-07-09] MEDS ORDERED: SODIUM CHLORIDE 0.9% FLUSH 10 ML FLUSH IV FLUSH PRN (18:15)
[2017-07-09] MEDS ORDERED: DOCU1CAP39 PO (18:25)
--- NOTE | 2017-07-09 18:39 | MH ---
cc: CINTIA GONZALES MD DATE OF ADMISSION 07/09/[address] Gonzales DIAGNOSIS Trauma to the left chest, small hemopneumothorax. HISTORY OF THE PRESENT ILLNESS This 77-year-old lady fell in [facility] on Friday from the standing position. She is complaining of left-sided chest pain and the outpatient x-ray revealed "20%" pneumothorax and fracture of the rib. The patient continued to complain and now comes to the emergency room unable to sleep, coughing and pain with lung excursion. It should be noted that the patient was admitted beginning June with rhabdomyolysis of unknown cause but was resuscitated, treated and discharged to [facility]. PAST MEDICAL HISTORY Is that of: 1. DVT. 2. Hydrocephalus. 3. Above noted recent rhabdomyolysis. PAST SURGICAL HISTORY Negative. ALLERGIES None. MEDICATIONS 1. Simvastatin. 2. Aspirin. SOCIAL HISTORY The patient does not smoke or drink. PHYSICAL EXAMINATION GENERAL: Reveals a 77-year-old lady awake, alert, oriented. Gena scale 15. HEENT: Normocephalic. No trauma to the head. Pupils equally reactive. Extraocular muscles intact. NECK: Supple. Bilateral carotid pulses and bilateral faint bruits. CHEST: Bilateral breath sounds, decreased over the left lung slightly. The patient has some degree of pulmonary cachexia with chest wall musculature loss and atrophy of the muscles generally. She is fairly thin. HEART: Regular rhythm. No murmurs. ABDOMEN: Soft. No masses. No rebound or guarding. Groins are normal. EXTREMITIES: Are grossly within normal limits. Bilateral femoral, popliteal, dorsalis pedis, posterior tibial pulses. NEUROLOGIC: The patient is fully intact. IMPRESSION AND RECOMMENDATIONS After reviewing laboratory and diagnostic procedures, the patient will be admitted. She has sustained fifth, sixth and seventh rib fractures on the left and small hemopneumothorax. At this point the patient will require some pain medication and therapy in order to improve and prevent pneumonia formation and then will be discharged. If the pneumothorax enlarges patient will require pigtail chest tube catheter for a few days. In addition, I will order carotid ultrasound in the face of the patient's bruit. Cintia TODD/SUSHANT Jon: 07/09/2017/6:08 PM /6:24 PM STEPHANIE
[2017-07-09] MEDS: SODIUM CHLORIDE 0.9% FLUSH 10 ML FLUSH IV FLUSH SCH (21:50)
[2017-07-09] MEDS: SODIUM CHLOR 0.9% 1000 ML INJ 1,000 ML IV SCH (21:50)
[2017-07-09] MEDS: DOCUSATE SODIUM 100 MG CAP PO SCH (21:51)
[2017-07-09] MEDS: FAMOTIDINE 20 MG TAB PO SCH (21:51)
[2017-07-10 04:00] VITALS: BP 128/59; PULSE 83; RESP 16; TEMP 96.4; O2SAT 98
--- NOTE | 2017-07-10 06:54 | RADRPT ---
EXAM DATE/TIME: 07/10/2017 06:27 [facility] COMPARISON: CHEST SINGLE AP, July 09, 2017, 15:57. INDICATIONS : Fell yesterday, pain left ribs, evaluate pneumothorax MEDICAL HISTORY : rib fractures, pneumothorax SURGICAL HISTORY : None. ENCOUNTER: Subsequent ACUITY: 1 day PAIN SCORE: 4/10 LOCATION: Left chest FINDINGS: Interval decrease in size of left pneumothorax to 2.5 cm (previously measured 2.9 cm). Patchy areas of opacity in the left lower lung loss of delineation of the lateral left hemidiaphragm unchanged fro m prior. The right lung is clear. No evidence of mediastinal shift. The heart is normal in size. CONCLUSION: Slight decrease in size of left apical pneumothorax. Chriss Fine MD on July 10, 2017 at 6:52 Board Certified Radiologist. This report was verified electronically.
[2017-07-10] MEDS ORDERED: RESP: ALBUTEROL 2.5 MG/IPRATROPIUM 0.5 MG NEB (PRN) NEB (07:45)
[2017-07-10 08:00] VITALS: BP 95/58; PULSE 74; RESP 18; TEMP 97.4; O2SAT 100
[2017-07-10] MEDS: MAGNESIUM HYDROXIDE SUSP 30 ML CUP PO SCH (09:00)
[2017-07-10] MEDS: LIDOCAINE HCL 5% PATCH T-DERMAL SCH (09:21)
[2017-07-10] MEDS: DOCUSATE SODIUM 100 MG CAP PO SCH (09:21)
[2017-07-10] MEDS: FAMOTIDINE 20 MG TAB PO SCH (09:21)
[2017-07-10] MEDS: METHOCARBAMOL 500 MG TAB PO SCH ×2 (09:21→16:04)
[2017-07-10] MEDS: SODIUM CHLORIDE 0.9% FLUSH 10 ML FLUSH IV FLUSH SCH (09:22)
--- NOTE | 2017-07-10 09:27 | RADRPT ---
EXAM DATE/TIME: 07/10/2017 08:21 [facility] COMPARISON: No previous studies available for comparison. INDICATIONS : Bruit. MEDICAL HISTORY : Hypercholesterolemia. Cardiac disorders. Anticoagulant therapy, Aspirin. SURGICAL HISTORY : Eye surgery. ENCOUNTER: Initial ACUITY: 1 day PAIN SCORE: 0/10 LOCATION: Bilateral neck PEAK SYSTOLIC VELOCITIES (cm/sec): ICA/CCA RATIO: Right: 0.7 Left: 1 ICA: Right: 77 Left: 92 CCA: Right: 110 Left: 92 ECA: Right: 94 Left: 66 VERTEBRAL: Right: 57 antegrade Left: 99 antegrade Elevated flow velocities and ICA/CCA ratios have been found to correlate with increased degrees of vessel stenosis, calculated as percentage of diameter relative to a normal segment of distal ICA/CCA FINDINGS: RIGHT CAROTID: No significant stenosis is visualized. The waveforms are within normal limits. LEFT CAROTID: No significant stenosis is visualized. The waveforms are within normal limits. VERTEBRAL ARTERIES: Antegrade flow is seen in both vertebral arteries. MISCELLANEOUS: None. CONCLUSION: No evidence of hemodynamically significant carotid stenosis. Gael Blackman MD on July 10, 2017 at 9:24 Board Certified Radiologist. This report was verified electronically.
--- NOTE | 2017-07-10 10:46 | HHI.PR ---
Subjective Subjective Notes PTD: 5; HD: 1 Pt sitting un in bed. No distress noted. Pt states, "I'm OK." She states that the pain meds are working for her pain. Objective Vitals/I&O Vital Signs Date Time Temp Pulse Resp B/P (MAP) Pulse Ox O2 Delivery O2 Flow Rate FiO2 07/10/17 08:00 97.4 74 18 95/58 (70) 100 07/10/17 06:30 Nasal Cannula 2.00 Labs Laboratory Tests Test 07/09/17 15:45 White Blood Count 12.9 Red Blood Count 4.52 Hemoglobin 13.5 Hematocrit 39.9 Mean Corpuscular Volume 88.2 Mean Corpuscular Hemoglobin 29.8 Mean Corpuscular Hemoglobin Concent 33.8 Red Cell Distribution Width 13.4 Platelet Count 534 Mean Platelet Volume 8.8 Neutrophils (%) (Auto) 78.5 Lymphocytes (%) (Auto) 8.0 Monocytes (%) (Auto) 12.1 Eosinophils (%) (Auto) 1.1 Basophils (%) (Auto) 0.3 Neutrophils # (Auto) 10.1 Lymphocytes # (Auto) 1.0 Monocytes # (Auto) 1.6 Eosinophils # (Auto) 0.1 Basophils # (Auto) 0.0 CBC Comment DIFF FINAL Differential Comment Prothrombin Time 10.0 Prothromb Time International Ratio 1.0 Activated Partial Thromboplast Time 24.5 Blood Urea Nitrogen 15 Creatinine 0.79 Random Glucose 115 Calcium Level 9.1 Sodium Level 139 Potassium Level 3.8 Chloride Level 102 Carbon Dioxide Level 28.7 Anion Gap 8 Estimat Glomerular Filtration Rate 70 Radiology Last 48 hours Impressions Chest X-Ray 07/10/17 0600 Signed Impressions: Service Date/Time: June 06:27 - CONCLUSION: Slight decrease in size of left apical pneumothorax. Chriss Fine MD Carotid Artery Ultrasound 07/10/17 0000 Signed Impressions: Service Date/Time: June 08:21 - CONCLUSION: No evidence of hemodynamically significant carotid stenosis. Gael Blackman MD Chest X-Ray 07/09/17 1540 Signed Impressions: Service Date/Time: Sunday, July 09, 2017 15:57 - CONCLUSION: Left rib fractures with left 3 cm pneumothorax. Chevy John MD FACR Chest CT 07/09/17 1540 Signed Impressions: Service Date/Time: Sunday, July 09, 2017 16:47 - CONCLUSION: Left pneumothorax measuring 3 cm with left rib fractures and trace pleural effusion. Right lung clear. Chevy John MD FACR Abdomen/Pelvis CT 07/09/17 1540 Signed Impressions: Service Date/Time: Sunday, July 09, 2017 16:44 - CONCLUSION: Moderate left pneumothorax with left rib fractures Abdominal contents are unremarkable. Chevy John MD FACR Narrative Exam GENERAL: This is a 77 year old female lying in bed. No distress noted. SKIN: Warm and dry. HEAD: Atraumatic. Normocephalic. EYES: PERRLA ENT: No nasal bleeding or discharge. Mucous membranes pink and moist. NECK: Trachea midline. No JVD. CARDIOVASCULAR: Regular rate and rhythm. RESPIRATORY: No accessory muscle use. Lungs are clear to auscultation. Breath sounds equal bilaterally. No distress or dyspnea. GASTROINTESTINAL: BS + x 4 quads. Abdomen soft, non-tender, nondistended. MUSCULOSKELETAL: Extremities without cyanosis, or edema. + peripheral pulses x 4 extremities. Warm with good capillary refill and sensation. MAEW. NEUROLOGICAL: Awake and alert. Normal speech and pattern. A/P Problem List: (1) Pneumothorax, left ICD Codes: J93.9 - Pneumothorax, unspecified Status: Acute (2) Multiple rib fractures ICD Codes: S22.49XA - Multiple fractures of ribs, unspecified side, initial encounter for closed fracture Status: Acute Assessment and Plan [place]: This is a 77 year old female lying in bed. No distress noted. She sustained a fall in the [facility]. CXR on Friday showed a "20% PTX." INJURIES: LEFT rib fx (6,7,8,9) LEFT PTX (3cm) PMHx: HLD. CVD. Procedures: Consults: Case management Diet: Regular diet. Tolerating po diet. Encourage good po intake with each meal. Pulmonary: Encourage good pulmonary toileting. IS at bedside and pt encouraged to use. Rationale for use explained to patient, and verbalized understanding. Duoneds. CXR shows decrease in PTX today. F/U CXR in the AM. PAIN Management: [place] 5 mg q 4h. Morphine 2 mg q 3h. Added Robaxin 500 mg q 8h. Added Lidoderm patch Activity: OOB. PT ordered. GI prophylaxis: Prpcid 20 mg BID. Bowel regimen: Colace and MOM. LBM: 0 DVT prophylaxis: Mechanical VTE with SCDs. Chemical management TBD. DC Planning: Case management consulted for assistance with final discharge disposition. Emotional support provided to patient at bedside and plan of care discussed. She should be able to DC back to the SNF once PTX resolved and pain managed - estimate 1-2 days.. Discussed with RN at bedside. Discussed pt condition and plan of care with collaborating trauma surgeon. Patient is hemodynamically stable and being managed on the med/surg floor. The trauma team will round each day, and evaluate plan of care on a daily basis. LEFT rib fx (6,7,8,9) LEFT PTX (3cm) O2 as needed Aggressive pulmonary toileting Pain management CXR showed decrease in PTX today F/U CXR in the AM PT ordered. Encourage OOB US carotids - HLD CAD Resumed home medications Problem Qualifiers (1) Multiple rib fractures: Qualified Codes: S22.42XA - Multiple fractures of ribs, left side, initial encounter for closed fracture Yanna Tyler Jul 10, 2017 10:46
[2017-07-10] MEDS ORDERED: MAGN30S PO (11:55)
[2017-07-10 12:00] VITALS: BP 113/50; PULSE 77; RESP 18; TEMP 96.7; O2SAT 95
[2017-07-10] MEDS: RESP: ALBUTEROL 2.5 MG/IPRATROPIUM 0.5 MG NEB (SCH) NEB ×3 (12:25→21:22)
[2017-07-10] MEDS: SODIUM CHLOR 0.9% 1000 ML INJ 1,000 ML IV SCH (15:00)
[2017-07-10 16:00] VITALS: BP 123/68; PULSE 80; RESP 18; TEMP 97.9; O2SAT 95
[2017-07-10 20:00] VITALS: BP 119/85; PULSE 102; TEMP 98.1; O2SAT 93
[2017-07-10] MEDS: PRAVASTATIN SOD 80 MG TAB PO SCH (21:00)
[2017-07-10] MEDS: REMOVE OLD LIDOCAINE PATCH T-DERMAL SCH (21:00)
[2017-07-10 21:25] VITALS: O2SAT 95
[2017-07-11] VITALS (9 sets, daily range): BP systolic 103–148; BP diastolic 54–70; PULSE 87–122; RESP 16–18; TEMP 96–97.9; O2SAT 92–98
[2017-07-11] MEDS: RESP: ALBUTEROL 2.5 MG/IPRATROPIUM 0.5 MG NEB (SCH) NEB ×4 (04:22→21:06)
--- NOTE | 2017-07-11 07:38 | RADRPT ---
EXAM DATE/TIME: 07/11/2017 06:23 [facility] COMPARISON: CHEST SINGLE AP, July 10, 2017, 6:27. INDICATIONS : Follow up trauma, evaluate left pneumothorax and rib fractures MEDICAL HISTORY : pneumothorax, rib fractures SURGICAL HISTORY : None. ENCOUNTER: Subsequent ACUITY: 2 days PAIN SCORE: 4/10 LOCATION: Bilateral chest FINDINGS: Left apical pneumothorax appears smaller. Left basilar opacity is present may be due to a combination of consolidation and or pleural effusion. The rest of the examination has not significantly changed. CONCLUSION: Reduction in size of left apical pneumothorax. Left basilar opacity is present may be due to a combin ation of consolidation and or pleural effusion. Anthony Galindo MD on July 11, 2017 at 7:32 Board Certified Radiologist. This report was verified electronically.
[2017-07-11] MEDS: MAGNESIUM HYDROXIDE SUSP 30 ML CUP PO SCH ×2 (08:00→20:54)
[2017-07-11] MEDS: ASPIRIN 81 MG CHEW TAB PO SCH (08:00)
[2017-07-11] MEDS: METHOCARBAMOL 500 MG TAB PO SCH ×2 (08:00→16:19)
[2017-07-11] MEDS: FAMOTIDINE 20 MG TAB PO SCH ×2 (08:01→20:54)
[2017-07-11] MEDS: DOCUSATE SODIUM 100 MG CAP PO SCH ×2 (08:01→20:54)
[2017-07-11] MEDS: SODIUM CHLORIDE 0.9% FLUSH 10 ML FLUSH IV FLUSH SCH ×2 (08:01→20:54)
[2017-07-11] MEDS: LIDOCAINE HCL 5% PATCH T-DERMAL SCH (08:05)
[2017-07-11] MEDS: SODIUM CHLOR 0.9% 1000 ML INJ 1,000 ML IV SCH (11:00)
--- NOTE | 2017-07-11 11:06 | HHI.PR ---
Subjective Subjective Notes PTD: 6; HD: 2 Pt OOB in a recliner chair. No c/o. "The pain is good." Pt describes "a little" SOB. Objective Vitals/I&O Vital Signs Date Time Temp Pulse Resp B/P (MAP) Pulse Ox O2 Delivery O2 Flow Rate FiO2 07/11/17 08:00 96.2 92 16 122/61 (81) 93 07/10/17 19:26 Room Air 07/10/17 09:25 2.00 Radiology Last 48 hours Impressions Chest X-Ray 07/10/17 0600 Signed Impressions: Service Date/Time: June 06:27 - CONCLUSION: Slight decrease in size of left apical pneumothorax. Chriss Fine MD Carotid Artery Ultrasound 07/10/17 0000 Signed Impressions: Service Date/Time: June 08:21 - CONCLUSION: No evidence of hemodynamically significant carotid stenosis. Gael Blackman MD Chest X-Ray 07/09/17 1540 Signed Impressions: Service Date/Time: Sunday, July 09, 2017 15:57 - CONCLUSION: Left rib fractures with left 3 cm pneumothorax. Chevy John MD FACR Chest CT 07/09/17 1540 Signed Impressions: Service Date/Time: Sunday, July 09, 2017 16:47 - CONCLUSION: Left pneumothorax measuring 3 cm with left rib fractures and trace pleural effusion. Right lung clear. Chevy John MD FACR Abdomen/Pelvis CT 07/09/17 1540 Signed Impressions: Service Date/Time: Sunday, July 09, 2017 16:44 - CONCLUSION: Moderate left pneumothorax with left rib fractures Abdominal contents are unremarkable. Chevy John MD FACR Narrative Exam GENERAL: This is a 77 year old female OOB in a recliner chair. No distress noted. SKIN: Warm and dry. HEAD: Atraumatic. Normocephalic. EYES: PERRLA ENT: No nasal bleeding or discharge. Mucous membranes pink and moist. NECK: Trachea midline. No JVD. CARDIOVASCULAR: Regular rate and rhythm. RESPIRATORY: O 2 NC. No accessory muscle use. Lungs are clear to auscultation. Breath sounds equal bilaterally. No distress or dyspnea. GASTROINTESTINAL: BS + x 4 quads. Abdomen soft, non-tender, nondistended. MUSCULOSKELETAL: Extremities without cyanosis, or edema. + peripheral pulses x 4 extremities. Warm with good capillary refill and sensation. MAEW. NEUROLOGICAL: Awake and alert. Normal speech and pattern. A/P Problem List: (1) Pneumothorax, left ICD Codes: J93.9 - Pneumothorax, unspecified Status: Acute (2) Multiple rib fractures ICD Codes: S22.49XA - Multiple fractures of ribs, unspecified side, initial encounter for closed fracture Status: Acute Assessment and Plan [place]: This is a 77 year old female lying in bed. No distress noted. She sustained a fall in the halfway. CXR on Friday showed a "20% PTX." INJURIES: LEFT rib fx (6,7,8,9) LEFT PTX (3cm) PMHx: HLD. CVD. Procedures: Consults: Case management Diet: Regular diet. Tolerating po diet. Encourage good po intake with each meal. Pulmonary: Encourage good pulmonary toileting. IS at bedside and pt encouraged to use. Rationale for use explained to patient, and verbalized understanding. Duoneds. CXR shows decrease in PTX today. F/U CXR in the AM. PAIN Management: [place] 5 mg q 4h. Morphine 2 mg q 3h. Robaxin 500 mg q 8h. Lidoderm patch. Added Motrin 600 mg q 8h. Activity: OOB. PT ordered. GI prophylaxis: Pepcid 20 mg BID. Bowel regimen: Colace and MOM. LBM: 0 DVT prophylaxis: Mechanical VTE with SCDs. Chemical management TBD. DC Planning: Case management consulted for assistance with final discharge disposition. Emotional support provided to patient at bedside and plan of care discussed. She should be able to DC back to the SNF once PTX resolved and pain managed - estimate tomorrow or Friday. Discussed with RN at bedside. Discussed pt condition and plan of care with collaborating trauma surgeon. Patient is hemodynamically stable and being managed on the med/surg floor. The trauma team will round each day, and evaluate plan of care on a daily basis. LEFT rib fx (6,7,8,9) LEFT PTX (3cm) O2 as needed Aggressive pulmonary toileting Pain management CXR showed decrease in PTX today F/U CXR in the AM PT ordered. Encourage OOB US carotids - negative HLD CAD Resumed home medications Problem Qualifiers (1) Multiple rib fractures: Qualified Codes: S22.42XA - Multiple fractures of ribs, left side, initial encounter for closed fracture Yanna Tyler Jul 11, 2017 11:06
[2017-07-11] MEDS: IBUPROFEN 600 MG TAB PO SCH ×2 (16:19→20:54)
[2017-07-11] MEDS: PRAVASTATIN SOD 80 MG TAB PO SCH (20:54)
[2017-07-11] MEDS: REMOVE OLD LIDOCAINE PATCH T-DERMAL SCH (20:54)
[2017-07-12] VITALS (9 sets, daily range): BP systolic 121–136; BP diastolic 59–68; PULSE 77–101; RESP 16–18; TEMP 96.5–97.9; O2SAT 94–98
[2017-07-12] MEDS: RESP: ALBUTEROL 2.5 MG/IPRATROPIUM 0.5 MG NEB (SCH) NEB ×4 (04:24→21:32)
--- NOTE | 2017-07-12 06:14 | RADRPT ---
EXAM DATE/TIME: 07/12/2017 04:56 [facility] COMPARISON: CHEST SINGLE AP, July 11, 2017, 6:23. INDICATIONS : Follow up trauma, evaluate left pneumothorax and rib fractures. MEDICAL HISTORY : Hypercholesterolemia. Pneumothorax, rib fractures SURGICAL HISTORY : None. ENCOUNTER: Subsequent ACUITY: 3 days PAIN SCORE: 0/10 LOCATION: Bilateral chest FINDINGS: There is a persistent left pneumothorax. This appears larger now measuring 2.7 cm over the left upper lung. Shift of the heart and mediastinal structures is not seen. There is increased density at the l eft base with silhouetting the left hemidiaphragm. Left-sided rib fractures seen. The right lung is c lear. CONCLUSION: Persistent worsening left moderate pneumothorax. This information was relayed to Ainsley, the patient's nurse by telephone. Matthew Alexandra MD on July 12, 2017 at 6:07 Board Certified Radiologist. This report was verified electronically.
[2017-07-12] MEDS: IBUPROFEN 600 MG TAB PO SCH ×4 (06:15→21:54)
[2017-07-12] MEDS: SODIUM CHLOR 0.9% 1000 ML INJ 1,000 ML IV SCH (07:51)
[2017-07-12] MEDS: LIDOCAINE HCL 5% PATCH T-DERMAL SCH (08:52)
[2017-07-12] MEDS: ASPIRIN 81 MG CHEW TAB PO SCH (08:53)
[2017-07-12] MEDS: DOCUSATE SODIUM 100 MG CAP PO SCH ×2 (08:53→21:52)
[2017-07-12] MEDS: MAGNESIUM HYDROXIDE SUSP 30 ML CUP PO SCH ×2 (08:53→21:52)
[2017-07-12] MEDS: SODIUM CHLORIDE 0.9% FLUSH 10 ML FLUSH IV FLUSH SCH ×2 (08:53→21:56)
[2017-07-12] MEDS: METHOCARBAMOL 500 MG TAB PO SCH ×3 (08:53→16:06)
[2017-07-12] MEDS: FAMOTIDINE 20 MG TAB PO SCH ×2 (08:53→21:53)
[2017-07-12] MEDS ORDERED: LIDOCAINE HCL 1% PF 30 ML VIAL INFIL ONE (10:30)
[2017-07-12] MEDS: ACETAMINOPHEN/HYDROcodone 325 MG/5 MG TAB PO PRN (13:25)
--- NOTE | 2017-07-12 14:29 | RADRPT ---
EXAM DATE/TIME: 07/12/2017 14:05 [facility] COMPARISON: CHEST SINGLE AP, July 12, 2017, 4:56. INDICATIONS : Status post left sided chest tube placement. MEDICAL HISTORY : Hypercholesterolemia. Pneumothorax, rib fractures SURGICAL HISTORY : None. ENCOUNTER: Subsequent ACUITY: 1 day PAIN SCORE: Non-responsive. LOCATION: chest FINDINGS: Single AP view of the chest. Left-sided pigtail chest catheter is now in place. Left pneumothorax no longer seen. Left lower lobe atelectasis versus consolidation and small left pleural effusion again s een. Right lung clear. CONCLUSION: Left-sided chest tube now in place. Pneumothorax no longer seen. Small pleural effusion and left basi lar atelectasis/consolidation unchanged. Gael Blackman MD on July 12, 2017 at 14:25 Board Certified Radiologist. This report was verified electronically.
[2017-07-12] MEDS: ACETAMINOPHEN/HYDROcodone 325 MG/7.5 MG TAB PO PRN (18:19)
[2017-07-12] MEDS: PRAVASTATIN SOD 80 MG TAB PO SCH (21:54)
[2017-07-12] MEDS: REMOVE OLD LIDOCAINE PATCH T-DERMAL SCH (21:56)
--- NOTE | 2017-07-12 22:51 | RADRPT ---
EXAM DATE/TIME: 07/12/2017 22:25 [facility] COMPARISON: CHEST SINGLE AP, July 12, 2017, 14:05. INDICATIONS : Pneumothorax. Chest tube accidentally removed. MEDICAL HISTORY : Hypercholesterolemia. Pneumothorax, rib fractures SURGICAL HISTORY : None. ENCOUNTER: Subsequent ACUITY: 1 day PAIN SCORE: 0/10 LOCATION: Bilateral chest FINDINGS: Left chest tube has been removed. There is a small apical pneumothorax, not significantly changed. Co nsolidation and a small effusion again seen left base, not significantly changed. Right lung remains clear. CONCLUSION: Left chest tube out. Small apical pneumothorax and bibasilar consolidation/effusion unchanged. Matthew Hollingsworth MD on July 12, 2017 at 22:47 Board Certified Radiologist. This report was verified electronically.
[2017-07-13] VITALS (8 sets, daily range): BP systolic 111–145; BP diastolic 58–65; PULSE 64–77; RESP 17–18; TEMP 96.3–97.9; O2SAT 96–98
[2017-07-13] MEDS: METHOCARBAMOL 500 MG TAB PO SCH ×4 (00:42→23:29)
[2017-07-13] MEDS: RESP: ALBUTEROL 2.5 MG/IPRATROPIUM 0.5 MG NEB (SCH) NEB ×4 (03:19→21:54)
[2017-07-13 05:07] LABS: AUTOMATED NEUTROPHIL # 3.1 TH/MM3 (1.8-7.7); BASOPHIL # 0.1 TH/MM3 (0-0.2); BASOPHIL % 1.4 % (0.0-2.0); EOSINOPHIL # 0.6 TH/MM3 (0-0.4); EOSINOPHIL % 10.2 % (0.0-4.0); HEMOGLOBIN 11.1 GM/DL (11.6-15.3); LYMPH % 24.1 % (9.0-44.0); LYMPHOCYTE # 1.4 TH/MM3 (1.0-4.8); MEAN CELL VOLUME 87.4 FL (80.0-100.0); MEAN CORPUSCULAR HEMOGLOBIN 29.5 PG (27.0-34.0); MEAN CORPUSCULAR HGB CONC 33.8 % (32.0-36.0); MEAN PLATELET VOLUME 8.7 FL (7.0-11.0); MONO % 11.8 % (0.0-8.0); MONOCYTE # 0.7 TH/MM3 (0-0.9); NEUT % 52.5 % (16.0-70.0); PLATELET COUNT 338 TH/MM3 (150-450); RED BLOOD COUNT 3.77 MIL/MM3 (4.00-5.30); RED CELL DISTRIBUTION WIDTH 13.3 % (11.6-17.2); WHITE BLOOD COUNT 5.8 TH/MM3 (4.0-11.0)
[2017-07-13 05:26] LABS: BICARBONATE 29.2 MEQ/L (21.0-32.0); CALCIUM 8.6 MG/DL (8.5-10.1); CREATININE 0.57 MG/DL (0.50-1.00)
[2017-07-13] MEDS: IBUPROFEN 600 MG TAB PO SCH ×3 (06:00→21:41)
--- NOTE | 2017-07-13 06:03 | RADRPT ---
EXAM DATE/TIME: 07/13/2017 05:13 [facility] COMPARISON: CHEST SINGLE AP, July 12, 2017, 22:25. INDICATIONS : Follow up pneumothorax. MEDICAL HISTORY : Hypercholesterolemia. Pneumothorax, rib fractures SURGICAL HISTORY : None. ENCOUNTER: Subsequent ACUITY: 2 days PAIN SCORE: 0/10 LOCATION: Bilateral chest FINDINGS: There continues to be a small pneumothorax over the left apex. This increased density at the left bas e with silhouetting the left hemidiaphragm. Left rib fractures are seen. The right lung is clear. The heart size is normal. CONCLUSION: 1. Mild persistent small pneumothorax with the left apex. 2. Left base atelectasis or contusion. Left-sided rib fractures are seen in this region. Matthew Alexandra MD on July 13, 2017 at 5:59 Board Certified Radiologist. This report was verified electronically.
[2017-07-13] MEDS: ASPIRIN 81 MG CHEW TAB PO SCH (08:52)
[2017-07-13] MEDS: LIDOCAINE HCL 5% PATCH T-DERMAL SCH (08:52)
[2017-07-13] MEDS: FAMOTIDINE 20 MG TAB PO SCH ×2 (08:53→21:41)
[2017-07-13] MEDS: DOCUSATE SODIUM 100 MG CAP PO SCH ×2 (08:53→21:40)
[2017-07-13] MEDS: ACETAMINOPHEN/HYDROcodone 325 MG/7.5 MG TAB PO PRN (08:53)
[2017-07-13] MEDS: MAGNESIUM HYDROXIDE SUSP 30 ML CUP PO SCH ×2 (08:53→21:40)
[2017-07-13] MEDS: SODIUM CHLORIDE 0.9% FLUSH 10 ML FLUSH IV FLUSH SCH ×2 (08:53→21:40)
--- NOTE | 2017-07-13 11:44 | HHI.PR ---
Subjective Subjective Notes Late entry for 07/12/17 OOB in chair during rounds Denies SOB CXR shows worsening PTX Objective Vitals/I&O Vital Signs Date Time Temp Pulse Resp B/P (MAP) Pulse Ox O2 Delivery O2 Flow Rate FiO2 07/13/17 08:00 96.6 70 17 123/58 (79) 96 07/13/17 07:30 Nasal Cannula 2.00 07/12/17 21:55 21 Labs Laboratory Tests Test 07/13/17 04:53 White Blood Count 5.8 Red Blood Count 3.77 Hemoglobin 11.1 Hematocrit 33.0 Mean Corpuscular Volume 87.4 Mean Corpuscular Hemoglobin 29.5 Mean Corpuscular Hemoglobin Concent 33.8 Red Cell Distribution Width 13.3 Platelet Count 338 Mean Platelet Volume 8.7 Neutrophils (%) (Auto) 52.5 Lymphocytes (%) (Auto) 24.1 Monocytes (%) (Auto) 11.8 Eosinophils (%) (Auto) 10.2 Basophils (%) (Auto) 1.4 Neutrophils # (Auto) 3.1 Lymphocytes # (Auto) 1.4 Monocytes # (Auto) 0.7 Eosinophils # (Auto) 0.6 Basophils # (Auto) 0.1 CBC Comment DIFF FINAL Differential Comment Blood Urea Nitrogen 12 Creatinine 0.57 Random Glucose 89 Calcium Level 8.6 Sodium Level 139 Potassium Level 3.9 Chloride Level 103 Carbon Dioxide Level 29.2 Anion Gap 7 Estimat Glomerular Filtration Rate 102 Radiology Last 48 hours Impressions Chest X-Ray 07/10/17 0600 Signed Impressions: Service Date/Time: June 06:27 - CONCLUSION: Slight decrease in size of left apical pneumothorax. Chriss Fine MD Carotid Artery Ultrasound 07/10/17 0000 Signed Impressions: Service Date/Time: June 08:21 - CONCLUSION: No evidence of hemodynamically significant carotid stenosis. Gael Blackman MD Chest X-Ray 07/09/17 1540 Signed Impressions: Service Date/Time: Sunday, July 09, 2017 15:57 - CONCLUSION: Left rib fractures with left 3 cm pneumothorax. Chevy John MD FACR Chest CT 07/09/17 1540 Signed Impressions: Service Date/Time: Sunday, July 09, 2017 16:47 - CONCLUSION: Left pneumothorax measuring 3 cm with left rib fractures and trace pleural effusion. Right lung clear. Chevy John MD FACR Abdomen/Pelvis CT 07/09/17 1540 Signed Impressions: Service Date/Time: Sunday, July 09, 2017 16:44 - CONCLUSION: Moderate left pneumothorax with left rib fractures Abdominal contents are unremarkable. Chevy John MD FACR Narrative Exam GENERAL: 77-year-old well-nourished, well developed female OOB in chair. SKIN: Warm and dry. HEAD: Normocephalic. EYES: Pupils equal and round. No scleral icterus. ENT: No nasal bleeding or discharge. Mucous membranes pink and moist. NECK: Trachea midline. No JVD. CARDIOVASCULAR: Regular rate and rhythm. RESPIRATORY: No accessory muscle use. Lungs clear and diminished to auscultation. Breath sounds equal bilaterally. GASTROINTESTINAL: Abdomen soft, non-tender, nondistended. + BS. MUSCULOSKELETAL: Extremities without cyanosis, or edema. MAEW, + perfused NEUROLOGICAL: Awake and alert. Normal speech. A/P Problem List: (1) Pneumothorax, left ICD Codes: J93.9 - Pneumothorax, unspecified Status: Acute (2) Multiple rib fractures ICD Codes: S22.49XA - Multiple fractures of ribs, unspecified side, initial encounter for closed fracture Status: Acute Assessment and Plan [place]: Fell from the standing position landing on her left side. Had an outpatient CXR which showed a 20% PTX and LEFT rib fx. INJURIES: LEFT rib fxs (6,7,8,9) LEFT PTX LEFT pulmonary contusion PMHx: HLD. CVD. 07/12: LEFT CT placed Diet: Regular Pulm: IS. Nebs. Pain: [place]. Morphine IV. Robaxin. Lidoderm patch. Motrin. Activity: OOB. PT ordered GI: Pepcid Bowel: Colace. MOM. LBM: 07/12 DVT: SCD's. LEFT rib fxs, LEFT PTX, LEFT pulmonary contusion Supportive care CXR today shows worsening moderate sized PTX. Plan for pigtail chest tube at bedside today- consent obtained Keep chest tube at -20 cm suction Pulmonary toileting Pain control OOB- PT ordered F/U CXR in the AM Plan of care discussed patient at bedside. Case management consulted to assist discharge planning. Problem Qualifiers (1) Multiple rib fractures: Qualified Codes: S22.42XA - Multiple fractures of ribs, left side, initial encounter for closed fracture David Stone Jul 13, 2017 11:44
--- NOTE | 2017-07-13 11:49 | HHI.PR ---
Subjective Subjective Notes Pigtail chest tube became dislodged overnight No SOB CXR this AM shows an apical PTX Objective Vitals/I&O Vital Signs Date Time Temp Pulse Resp B/P (MAP) Pulse Ox O2 Delivery O2 Flow Rate FiO2 07/13/17 08:00 96.6 70 17 123/58 (79) 96 07/13/17 07:30 Nasal Cannula 2.00 07/12/17 21:55 21 Labs Laboratory Tests Test 07/13/17 04:53 White Blood Count 5.8 Red Blood Count 3.77 Hemoglobin 11.1 Hematocrit 33.0 Mean Corpuscular Volume 87.4 Mean Corpuscular Hemoglobin 29.5 Mean Corpuscular Hemoglobin Concent 33.8 Red Cell Distribution Width 13.3 Platelet Count 338 Mean Platelet Volume 8.7 Neutrophils (%) (Auto) 52.5 Lymphocytes (%) (Auto) 24.1 Monocytes (%) (Auto) 11.8 Eosinophils (%) (Auto) 10.2 Basophils (%) (Auto) 1.4 Neutrophils # (Auto) 3.1 Lymphocytes # (Auto) 1.4 Monocytes # (Auto) 0.7 Eosinophils # (Auto) 0.6 Basophils # (Auto) 0.1 CBC Comment DIFF FINAL Differential Comment Blood Urea Nitrogen 12 Creatinine 0.57 Random Glucose 89 Calcium Level 8.6 Sodium Level 139 Potassium Level 3.9 Chloride Level 103 Carbon Dioxide Level 29.2 Anion Gap 7 Estimat Glomerular Filtration Rate 102 Radiology Last 48 hours Impressions Chest X-Ray 07/10/17 0600 Signed Impressions: Service Date/Time: June 06:27 - CONCLUSION: Slight decrease in size of left apical pneumothorax. Chriss Fine MD Carotid Artery Ultrasound 07/10/17 0000 Signed Impressions: Service Date/Time: June 08:21 - CONCLUSION: No evidence of hemodynamically significant carotid stenosis. Gael Blackman MD Chest X-Ray 07/09/17 1540 Signed Impressions: Service Date/Time: Sunday, July 09, 2017 15:57 - CONCLUSION: Left rib fractures with left 3 cm pneumothorax. Chevy John MD FACR Chest CT 07/09/17 1540 Signed Impressions: Service Date/Time: Sunday, July 09, 2017 16:47 - CONCLUSION: Left pneumothorax measuring 3 cm with left rib fractures and trace pleural effusion. Right lung clear. Chevy John MD FACR Abdomen/Pelvis CT 07/09/17 1540 Signed Impressions: Service Date/Time: Sunday, July 09, 2017 16:44 - CONCLUSION: Moderate left pneumothorax with left rib fractures Abdominal contents are unremarkable. Chevy John MD FACR Narrative Exam GENERAL: 77 year-old well-nourished, well developed female lying in bed. SKIN: Warm and dry. HEAD: Normocephalic. NECK: Trachea midline. No JVD. CARDIOVASCULAR: Regular rate and rhythm. RESPIRATORY: No accessory muscle use. Lungs clear and diminished to auscultation. Breath sounds equal bilaterally. GASTROINTESTINAL: Abdomen soft, non-tender, nondistended. + BS. MUSCULOSKELETAL: Extremities without cyanosis, or edema. MAEW, + perfused NEUROLOGICAL: Awake and alert. Normal speech. A/P Problem List: (1) Pneumothorax, left ICD Codes: J93.9 - Pneumothorax, unspecified Status: Acute (2) Multiple rib fractures ICD Codes: S22.49XA - Multiple fractures of ribs, unspecified side, initial encounter for closed fracture Status: Acute Assessment and Plan [place]: Fell from the standing position landing on her left side. Had an outpatient CXR which showed a 20% PTX and LEFT rib fx. INJURIES: LEFT rib fxs (6,7,8,9) LEFT PTX LEFT pulmonary contusion PMHx: HLD. CVD. 07/12: LEFT CT placed 07/12: LEFT CT dislodged Diet: Regular Pulm: IS. Nebs. Pain: [place]. Morphine IV. Robaxin. Lidoderm patch. Motrin. Activity: OOB. PT ordered GI: Pepcid Bowel: Colace. MOM. LBM: 07/12 DVT: SCD's. LEFT rib fxs, LEFT PTX, LEFT pulmonary contusion Supportive care CXR today shows a LEFT apical PTX-continue to monitor CXR in AM Pulmonary toileting Pain control OOB- PT ordered Plan of care discussed patient at bedside. Case management consulted to assist discharge planning. Problem Qualifiers (1) Multiple rib fractures: Qualified Codes: S22.42XA - Multiple fractures of ribs, left side, initial encounter for closed fracture David Stone Jul 13, 2017 11:49
[2017-07-13] MEDS: REMOVE OLD LIDOCAINE PATCH T-DERMAL SCH (21:40)
[2017-07-13] MEDS: PRAVASTATIN SOD 80 MG TAB PO SCH (21:41)
[2017-07-14 00:20] VITALS: BP 150/68; PULSE 74; RESP 18; TEMP 96.2; O2SAT 97
[2017-07-14 04:05] VITALS: BP 123/59; PULSE 74; RESP 18; TEMP 97; O2SAT 95
[2017-07-14] MEDS: IBUPROFEN 600 MG TAB PO SCH (05:37)
[2017-07-14] MEDS: RESP: ALBUTEROL 2.5 MG/IPRATROPIUM 0.5 MG NEB (SCH) NEB ×2 (05:39→07:50)
--- NOTE | 2017-07-14 06:51 | RADRPT ---
EXAM DATE/TIME: 07/14/2017 05:27 [facility] COMPARISON: CHEST SINGLE AP, July 13, 2017, 5:13. INDICATIONS : Short of breath, follow up pneumothorax MEDICAL HISTORY : pneumothorax, rib fractures SURGICAL HISTORY : None. ENCOUNTER: Subsequent ACUITY: 4 - 6 days PAIN SCORE: 2/10 LOCATION: Bilateral chest FINDINGS: A single view of the chest demonstrates small left apical pneumothorax. Mild basilar airspace disease on the left with small effusion. Multiple left rib fractures. CONCLUSION: 1. Small left pneumothorax with about 15 mm of pleural separation superiorly, slightly increased from July 13. Left effusion and left basilar consolidation persist with multiple left rib fractures. Bang Moulton MD on July 14, 2017 at 6:43 Board Certified Radiologist. This report was verified electronically.
[2017-07-14 07:49] VITALS: BP 138/63; PULSE 68; RESP 18; TEMP 97.9; O2SAT 96
[2017-07-14 07:52] VITALS: O2SAT 95
[2017-07-14] MEDS: MAGNESIUM HYDROXIDE SUSP 30 ML CUP PO SCH (08:45)
[2017-07-14] MEDS: METHOCARBAMOL 500 MG TAB PO SCH ×2 (08:45→16:27)
[2017-07-14] MEDS: ASPIRIN 81 MG CHEW TAB PO SCH (08:45)
[2017-07-14] MEDS: ACETAMINOPHEN/HYDROcodone 325 MG/7.5 MG TAB PO PRN (08:46)
[2017-07-14] MEDS: LIDOCAINE HCL 5% PATCH T-DERMAL SCH (08:47)
[2017-07-14] MEDS ORDERED: HYDR-3516 PO (11:15)
[2017-07-14] MEDS ORDERED: METH500T3 PO (11:15)
[2017-07-14 12:00] VITALS: BP 133/63; PULSE 87; RESP 18; TEMP 96.9; O2SAT 96
--- NOTE | 2017-07-14 13:25 | HHI.DS ---
Discharge Summary Admission Date Jul 09, 2017 at 17:34 Discharge Date: Jul 14, 2017 Admitting Diagnosis left pneumothorax, multiple rib fractures, small hemothorax (1) Pneumothorax, left ICD Codes: J93.9 - Pneumothorax, unspecified Status: Acute (2) Multiple rib fractures ICD Codes: S22.49XA - Multiple fractures of ribs, unspecified side, initial encounter for closed fracture Status: Acute Brief History S/P Trauma: Fall CBC/BMP: 07/13/17 0453 07/13/17 0453 Significant Findings Laboratory Tests Test 07/13/17 04:53 Red Blood Count 3.77 MIL/MM3 (4.00-5.30) Hemoglobin 11.1 GM/DL (11.6-15.3) Hematocrit 33.0 % (35.0-46.0) Monocytes (%) (Auto) 11.8 % (0.0-8.0) Eosinophils (%) (Auto) 10.2 % (0.0-4.0) Eosinophils # (Auto) 0.6 TH/MM3 (0-0.4) Imaging Last Impressions Chest X-Ray 07/14/17 0600 Signed Impressions: Service Date/Time: Friday, July 14, 2017 05:27 - CONCLUSION: 1. Small left pneumothorax with about 15 mm of pleural separation superiorly, slightly increased from July 13. Left effusion and left basilar consolidation persist with multiple left rib fractures. Bang Moulton MD Carotid Artery Ultrasound 07/10/17 0000 Signed Impressions: Service Date/Time: June 08:21 - CONCLUSION: No evidence of hemodynamically significant carotid stenosis. Gael Blackman MD Chest CT 07/09/17 1540 Signed Impressions: Service Date/Time: Sunday, July 09, 2017 16:47 - CONCLUSION: Left pneumothorax measuring 3 cm with left rib fractures and trace pleural effusion. Right lung clear. Chevy John MD FACR Abdomen/Pelvis CT 07/09/17 1540 Signed Impressions: Service Date/Time: Sunday, July 09, 2017 16:44 - CONCLUSION: Moderate left pneumothorax with left rib fractures Abdominal contents are unremarkable. Chevy John MD FACR PE at Discharge GENERAL: 77 year-old well-nourished, well developed female lying in bed. SKIN: Warm and dry. HEAD: Normocephalic. NECK: Trachea midline. No JVD. CARDIOVASCULAR: Regular rate and rhythm. RESPIRATORY: No accessory muscle use. Lungs clear and diminished to auscultation. Breath sounds equal bilaterally. GASTROINTESTINAL: Abdomen soft, non-tender, nondistended. + BS. MUSCULOSKELETAL: Extremities without cyanosis, or edema. MAEW, + perfused NEUROLOGICAL: Awake and alert. Normal speech. Hospital Course [place]: Fell from the standing position landing on her left side. Had an outpatient CXR which showed a 20% PTX and LEFT rib fx. INJURIES: LEFT rib fxs (6,7,8,9) LEFT PTX LEFT pulmonary contusion PMHx: HLD. CVD. LEFT rib fxs, LEFT PTX, LEFT pulmonary contusion Supportive care 07/12: LEFT CT placed 07/12: LEFT CT dislodged CXR today shows a stable LEFT apical PTX Pulmonary toileting Pain control OOB F/U with PCP in 1 week Plan of care discussed patient at bedside. Patient is clear from trauma surgery standpoint to safely discharge back to [facility]. Pt Condition on Discharge: Stable Discharge Disposition: Discharge to SNF Discharge Instructions DIET: Follow Instructions for: As Tolerated, No Restrictions Activities you can perform: Weight Bearing as Ivet Activities to Avoid: Strenuous Activity Other Activity Instructions: No heavy lifting. David Stone Jul 14, 2017 13:25
[2017-07-14 16:00] VITALS: BP 122/60; PULSE 82; RESP 18; TEMP 96.8; O2SAT 97
[2017-07-14] MEDS: ACETAMINOPHEN/HYDROcodone 325 MG/5 MG TAB PO PRN (16:27)
--- NOTE | 2017-07-15 10:10 | MP ---
cc: FLAQUITA GONZALES MD DATE OF SURGERY 07/12/2017 PREOPERATIVE DIAGNOSIS Traumatic left pneumothorax with enlargement. POSTOPERATIVE DIAGNOSIS Traumatic left pneumothorax with enlargement. OPERATIVE PROCEDURE Left PleurX pigtail chest tube placement. SURGEON MD Karen ANESTHESIA 1% Xylocaine. ESTIMATED BLOOD LOSS Minimal. PROCEDURE The patient was prepped and draped in the usual fashion. The area infiltrated with 1% Xylocaine. In the second intercostal space a small incision was made with an 11 blade and then a 10-Lao pigtail catheter is inserted with a metal guide in it and then advanced into the pleural cavity connected to the Pleur-Evac and it readily bubbles out. The lung expands completely. Dressing applied. The patient tolerated the procedure well. Chest x-ray obtained. Flaquita TODD/SSB /3:40 PM /10:02 AM
== END 2017-07-14 19:37 | DRG 200 ==
LOC: NEPC 15:21 → NEDH 17:34 → N06B 18:45
PROVIDERS: ADMIT Surgery; ATTEND Surgery
PROC: 0W9B30Z Drainage of Left Pleural Cavity with Drainage Device, Percutaneous Approach (ICD-10-PCS; principal; 2017-07-12)
DX: S27.0XXA Traumatic pneumothorax, initial encounter (principal); S22.42XA Multiple fractures of ribs, left side, initial encounter for closed fracture; G91.9 Hydrocephalus, unspecified; S27.321A Contusion of lung, unilateral, initial encounter; W19.XXXA Unspecified fall, initial encounter; E78.5 Hyperlipidemia, unspecified; Z86.718 Personal history of other venous thrombosis and embolism
CPT/HCPCS: 71045; 71260; 74177; 80048; 85025; 85610; 85730; 86850; 86900; 86901; 93880; 94150; 94640; 94664; 96374; 96375; J2270; J2405; J7030; Q9967